=== PATIENT | male | born 1945 | race Two or more races ===

== ENCOUNTER 2024-06-28 01:04 | Inpatient (IN) | payer OTHER ==
[~2024-06-28] VITALS: Ht 170.2 cm; Wt 60.0 kg
[2024-06-28 02:00] LABS: Urine Bacteria None Seen /hpf (None Seen)
--- NOTE | 2024-06-28 02:00 | ED.PDOC ---
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 Allergies: NKDA HPI: Poor Historian. 79-year-old male presents to emergency department for unable to urinate since yesterday. Patient has the urge to go by his unable to void urine. The patient is currently on antibiotics for recurrent UTI. He completed Cipro and is currently on Augmentin all last week. He has one more day of his course of antibiotics. REVIEW OF SYSTEMS: CONSTITUTIONAL: Denies acute: fever, diaphoresis, chills, generalized weakness. HEAD: Denies acute: headache, photophobia Eyes: Denies acute: Double vision, vision loss, eye pain, eye discharge. EARS: Denies acute: tinnitus, hearing loss, ear discharge, ear pain, THROAT: Denies acute: sore throat, swelling, difficulty swallowing , pain with swa llowing, change in voice. NECK: Denies acute: neck pain, neck swelling, stiff neck. HEART: Denies acute : chest pain, palpitations, LUNGS: Denies acute: SOB, wheezing, cough, hemoptysis ABDOMEN: Denies acute: abdominal pain, Nausea, Vomiting, diarrhea, melena , hematemesis, hematochezia SKIN: Denies acute: rash, redness, lesions, itchiness. EXTREMITIES: Denies acute: calf pain, numbness, tingling, weakness, denies pain in extremity. Denies acute: Low back pain. Neuro: Denies acute: focal neurological deficit, motor or sensory focal neurological deficit, tremors, seizure like activity, confusion, dizziness, change in mental status, loss of bowel or bladder function, cauda equina like symptoms. : Denies acute: dysuria, hematuria, flank pain, increase in urinary frequency. PSYCH: Denies acute: hallucination, suicidal ideation, homicidal ideation. PHYSICAL EXAM: General: Mild to moderate acute distress, awake and alert. Head: normocephalic, atraumatic. Neck: supple, trachea is midline, no swelling. Throat: Normal phonation. Eyes:, no erythema, no purulent discharge, no proptosis, no icterus. Heart: regular rate, regular rhythm, no significant murmur appreciated. Lungs: no apparent respiratory distress, Able to speak in full sentences. No wheezing, no rhonchi, no crackles. No stridors Clear to auscultation bilaterally. Abdomen: Suprapubic tender to palpation, non distended, soft, no guarding, no rebound, + bowel sounds. Patel catheter was placed successfully in a proximally 1 L of normal color urine was obtained. Patient feels significantly better. Neuro: Awake, Alert, oriented to name, self, situation, follows commands GCS=15. Speech is normal. Skin: no petechia, no purpura, no cyanosis, slightly-pale, not jaundice. Lower extremities: --trace bilateral - Pitting edema no deformity, no focal swelling, no calf TTP. Makes eye contact. moves all four extremities. Face: no apparent facial droop. Chief Complaint: Urinary Time Seen by MD: 01:30 Reviewed notes: Nurses Notes, Allergies Allergies: Coded Allergies: NO KNOWN ALLERGIES (Unverified , 06/28/24) Information Source: Patient, Relative Mode of Arrival: Wheelchair Was a procedure done? Was a procedure done?: No Differential Diagnosis Kidney stone (Female): N/A Urinary Problem (Male): Bladder Outlet, Bladder Obstruction, Epididymitis, Prostatitis, Plelonephritis, Post op Complications, Renal Failure, Urethritis, Urinary Retention, Urolithiasis, UTI X-Ray, Labs, Meds, VS Vital Signs Date Time Temp Pulse Resp B/P (MAP) Pulse Ox O2 Delivery O2 Flow Rate FiO2 06/28/24 03:10 98.6 97 16 121/60 (80) 97 98.6 06/28/24 01:17 98.8 85 19 28/62 (51) 98 Lab Test 06/28/24 02:36 06/28/24 01:36 06/28/24 01:21 Range/Units Troponin I High Sensitivity 7 7 </=54 ng/L White Blood Count 7.5 4.4-10.8 10^3/uL Red Blood Count 3.11 L 4.5-5.90 10^6/uL Hemoglobin 9.1 L 13.5-17.5 g/dL Hematocrit 26.8 L 41.0-53.0 % Mean Corpuscular Volume 86.1 80.0-100.0 fL Mean Corpuscular Hemoglobin 29.2 28.0-32.0 pg Mean Corpuscular Hemoglobin Concent 33.9 32.0-36.0 g/dL Red Cell Distribution Width 17.0 H 11.8-14.3 % Platelet Count 213 140-450 10^3/uL Mean Platelet Volume 8.5 6.9-10.8 fL Neutrophils (%) (Auto) 65.4 37.0-80.0 % Lymphocytes (%) (Auto) 26.0 10.0-50.0 % Monocytes (%) (Auto) 6.8 0.0-12.0 % Eosinophils (%) (Auto) 1.0 0.0-7.0 % Basophils (%) (Auto) 0.8 0.0-2.0 % Neutrophils # (Auto) 4.9 1.6-8.6 10 ^3/uL Lymphocytes # (Auto) 1.9 0.4-5.4 10 ^3/uL Monocytes # (Auto) 0.5 0-1.3 10 ^3/uL Eosinophils # (Auto) 0.1 0-0.8 10 ^3/uL Basophils # (Auto) 0.1 0-0.2 10 ^3/uL Nucleated Red Blood Cells 0.0 % Platelet Estimate Adequate Anisocytosis (manual) Slight Schistocytes Few Sodium Level 135 L 136-145 mmol/L Potassium Level 3.8 3.5-5.1 mmol/L Chloride Level 97 L 98-107 mmol/L Carbon Dioxide Level 31 20-31 mmol/L Anion Gap 7 5-15 Blood Urea Nitrogen 20 9-23 mg/dL Creatinine 2.57 H 0.700-1.30 mg/dL Glomerular Filtration Rate Calc 25 >90 mL/min BUN/Creatinine Ratio 7.8 L 10.0-20.0 Serum Glucose 220 H 74-106 mg/dL Lactic Acid Level 1.2 0.4-2.0 mmol/L Calcium Level 9.7 8.7-10.4 mg/dL Total Bilirubin 0.2 0.2-1.0 mg/dL Aspartate Amino Transferase (AST) 20 13-40 U/L Alanine Aminotransferase (ALT) 12 7-40 U/L Alkaline Phosphatase 152 H 46-116 U/L Total Protein 6.9 5.7-8.2 g/dL Albumin 3.8 3.2-4.8 g/dL Urine Color Colorless Yellow Urine Clarity Turbid H Clear Urine pH 8.5 5.0-9.0 Urine Specific [place] 1.012 1.001-1.035 Urine Protein 3+ H Negative Urine Ketones Negative Negative Urine Blood 1+ H Negative /uL Urine Nitrite Negative Negative Urine Bilirubin Negative Negative Urine Urobilinogen Normal Negative mg/dL Urine Leukocyte Esterase 3+ Negative /uL Urine RBC 57 0 - 3 /hpf Urine Microscopic WBC 926 H 0-3 /HPF Urine Squamous Epithelial Cells None seen <5 /hpf Urine Bacteria None seen None Seen /hpf Urine Glucose 3+ H Normal mg/dL Current Medications Medications (Trade) Dose Ordered Sig/Mallorie Route Start Time Stop Time Status Last Admin Ceftriaxone Sodium 50 ml @ 100 mls/hr ONCE ONCE IV 06/28/24 02:45 06/28/24 03:14 DC 06/28/24 02:45 Time of 1ST Reevaluation: 01:30 Reevaluation 1ST: Unchanged Patient Education/Counseling: Diagnosis, Treatment Family Education/Counseling: No Family Present Assigned to Dr. Dr. Aguilar I anticipate the patient will be discharged however CT scan still pending. Dr. Aguilar will follow up on CT scan reports and reassessed the patient and disposition the patient appropriately. Comments Patient presented with the above HPI. Acute urinary retention workup was initiated. patient was found with the above mentioned diagnosis. the following medications were ordered: n/a the following tests were ordered: CMP, CBC, UA, EKG, lactic acid, CT abdomen/pelvis w/o contrast Patient ED course and VS have been stabilized. Patient has been reassessed in the ED and remained in a stable condition. Pertinent incidental findings were discussed with the patient and/or family. Patient/family voices understanding and is agreeable with plan. Patient has been observed in the ED adequate length of time to insure improvement/stability. Escalation of care considered: Consideration of escalation to observation or admission Patel catheter was placed successfully and patient's symptoms resolved. At least 1 L of normal color urine came out. Patient is already on antibiotics for UTI. He was given Rocephin here as well. Patient was instructed to follow up with Urology. Patient was DISCHARGED home in a stable condition. All the reports of any imaging studies that were ordered by myself were reviewed by myself. CT scan of the abdomen and pelvis is still pending. The care of this patient was signed out to my colleague Dr. Aguilar to follow up on CT scan finding and reassessed the patient and disposition the patient appropriately. Departure 1 Departure Time of Disposition: 02:34 Impression: Primary Impression: Acute urinary retention Additional Impressions: UTI (urinary tract infection) Qualified Codes: N30.00 - Acute cystitis without hematuria Indwelling Patel catheter calcification Qualified Codes: T83.89XA - Other specified complication of genitourinary prosthetic devices, implants and grafts, initial encounter Disposition: 30 STILL A PATIENT Condition: Stable Additional Instructions: Additional discharge instructions: You MUST follow-up with your primary care/family doctor in 1 to 2 days. If you are unable to see your primary care/family doctor, please return to our emergency room for re-assessment and re-evaluation in 1 to 2 days. Return to the emergency room here in our facility or to the nearest ER [facility] if your symptoms change or worsen. CONSULTATIONS: you MUST Follow-up for consultation as soon as possible with: -urology in 1-2 days. Please call for appointment. You MUST call the consultants office yourself to make an appointment. You may need to arrange that through your insurance and/or your primary/family doctor. If you are unable to see the clinical sales consultant in 1 to 2 days, you must return to our emergency room (or any other ER of your choice) for re-assessment and re- evaluation. Adequate fluid hydration. Below is a copy of your radiological report for follow up: Discharged With: Self, Relative Critical Care Note Critical Care Time?: No I personally scribed for LIGIA LOPEZ DO ([email or web address]) on 06/28/24 at 02:00. Electronically submitted by Wong Paz ([email or web address]). LIGIA LOPEZ DO Jun 28, 2024 02:00
[2024-06-28 02:19] LABS: Urine Blood 1+ /uL (Negative); Urine Clarity Turbid (Clear); Urine Color Colorless (Yellow); Urine Protein, UAD 3+ (Negative); Urine Specific Gravity 1.012 (1.001-1.035); Urine Squamous Epithelial Cell None Seen /hpf (<5); Urine Urobilinogen Normal (Negative); Urine WBC 926 /HPF (0-3); Urine pH 8.5 (5.0-9.0)
[2024-06-28 02:26] LABS: Basophils # (auto) 0.1 10 ^3/uL (0-0.2); Basophils % (auto) 0.8 % (0.0-2.0); Eosinophils # (auto) 0.1 10 ^3/uL (0-0.8); Hematocrit 26.8 % (41.0-53.0); Hemoglobin 9.1 g/dL (13.5-17.5); Lymphocytes # (auto) 1.9 10 ^3/uL (0.4-5.4); Mean Corpuscular Hemoglobin 29.2 pg (28.0-32.0); Mean Corpuscular Hgb Conc. 33.9 g/dL (32.0-36.0); Mean Corpuscular Volume 86.1 fL (80.0-100.0); Monocytes # (auto) 0.5 10 ^3/uL (0-1.3); Monocytes % (auto) 6.8 % (0.0-12.0); Neutrophils # (auto) 4.9 10 ^3/uL (1.6-8.6); Neutrophils % (auto) 65.4 % (37.0-80.0); Platelet Count (auto) 213 10^3/uL (140-450); Red Blood Cells 3.11 10^6/uL (4.5-5.90); White Blood Cell 7.5 10^3/uL (4.4-10.8)
[2024-06-28 02:32] LABS: Alanine Aminotransferase 12 U/L (7-40); Albumin 3.8 g/dL (3.2-4.8); Anion Gap 7 (5-15); Aspartate Aminotransferase 20 U/L (13-40); BUN/Creatinine Ratio 7.8 (10.0-20.0); Blood Urea Nitrogen 20 mg/dL (9-23); Calcium 9.7 mg/dL (8.7-10.4); Potassium 3.8 mmol/L (3.5-5.1)
[2024-06-28 02:33] LABS: Alkaline Phosphatase 152 U/L (46-116); Bilirubin, Total 0.2 mg/dL (0.2-1.0); Carbon Dioxide 31 mmol/L (20-31); Chloride 97 mmol/L (98-107); Glucose 220 mg/dL (74-106); Sodium 135 mmol/L (136-145); Total Protein 6.9 g/dL (5.7-8.2)
[2024-06-28] MEDS: cefTRIAXone 1GM/50ML D5W 50 ML IV ONE ×2 (02:45→07:37)
[2024-06-28 02:56] LABS: Anisocytosis Slight; Platelet Estimate Adequate
--- NOTE | 2024-06-28 04:37 | DVH ---
Examination: ABPL CLINICAL INDICATION: urinary retention . COMPARISON: None. CONTRAST USED: None. TECHNIQUE: A plain CT study of the abdomen and pelvis is performed. The examination was performed w ith [address] scan is done according to ALARA (As Low as Reasonably Achievable). Multipl daniel reconstructions were obtained. FINDINGS: The lack of intravenous contrast limits evaluation of solid organ and other structures, differentiati on/separation and intraluminal evaluation of vessels and ureter from surrounding structures, and eval uation of organ or abnormal enhancement. Limited evaluation due to streak artifacts from the left hip joint replacement prosthesis in place gi ving intense adjacent streak artifacts in pelvis. CT ABDOMEN: Visualized lower thorax: The evaluation of lung bases demonstrates no focal infiltrates or pleural e ffusion. Subpleural subsegmental atelectatic areas and/or scarring in visualized left lower pulmonary lobe pos teriorly. Atelectatic band and/or scarring in visualized left lower pulmonary lobe posteriorly. Unenhanced liver: The liver is normal in size. There is no intrahepatic biliary radicle dilatation. Gallbladder: The gallbladder is normal and reveals no intrinsic abnormality. The common bile duct i s not dilated. Unenhanced pancreas: The pancreas is normal in size and shape. No focal lesion is seen within. The peripancreatic fat planes are normal. Unenhanced spleen: The spleen is normal in size and does not show any focal abnormality. Retroperitoneum: Both adrenal glands are normal in size and morphology in this unenhanced CT scan. There is no significant retroperitoneal lymphadenopathy. The kidneys are normal in size with no hydronephrosis. Rzyv-wa-bjjmnexy lesion of approximate size 21 mm at the upper pole of left kidney posteriorly. Advi sed further evaluation with CT abdomen and pelvis with contrast. Non-obstructing calculus of approximate size 2 mm at the mid pole of right kidney. Vessels: Calcific atherosclerotic aorto-iliac plaques noted. Otherwise, the aorta, IVC and the mese nteric vessels cannot be commented in this unenhanced CT scan. Stomach and bowel: The bowel loops are unremarkable. There is no ascites. 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 P lease correlate with operative history. Mild degenerative changes in the visualized thoracolumbar vertebrae and the rest of the pelvic bones. CT PELVIS: Appendix: The appendix is not distinctly visualized. Colon: Fecal matter noted in the colon and rectum, suggestive of constipation in the appropriate cli nical setting. Advised clinical correlation. Hyperdense intraluminal material noted in the distal colon and rectum, likely retained contrast from prior ingestion of oral contrast media. Urinary bladder: The urinary bladder is empty with urinary drainage catheter within. Pelvic organs: The prostate gland cannot be commented upon due to intense streak artifacts from the left hip joint replacement prosthesis in place. No significant pelvic lymphadenopathy is identified. No abnormal fluid collection is seen. IMPRESSION: 1. Limited evaluation due to streak artifacts from the left hip joint replacement prosthesis in plac e giving intense adjacent streak artifacts in pelvis. 2. Vyau-io-rmelngtp lesion of approximate size 21 mm at the upper pole of left kidney posteriorly. Advised further evaluation with CT abdomen and pelvis with contrast. 3. Non-obstructing calculus of approximate size 2 mm at the mid pole of right kidney. 4. No abdominal adenopathy. 5. No ascites. 6. No free air or inflammatory changes. 7. Chronic and/or ancillary findings as described above. Electronically Signed 06/28/2024 04:35 Sydnee Prado
--- NOTE | 2024-06-28 05:19 | ED.PDOC ---
Departure 1 Departure Time of Disposition: 05:17 (Patient has failed multiple outpatient antibiotics for urinary tract infection. Patient also with a lesion on his kidney. We will admit patient for further workup) Impression: Primary Impression: Acute urinary retention Additional Impressions: Indwelling Patel catheter calcification Qualified Codes: T83.89XA - Other specified complication of genitourinary prosthetic devices, implants and grafts, initial encounter UTI (urinary tract infection) Qualified Codes: N30.00 - Acute cystitis without hematuria Disposition: ADMITTED INPATIENT Admit to: Med Surg Condition: Serious Additional Instructions: Additional discharge instructions: You MUST follow-up with your primary care/family doctor in 1 to 2 days. If you are unable to see your primary care/family doctor, please return to our emergency room for re-assessment and re-evaluation in 1 to 2 days. Return to the emergency room here in our facility or to the nearest ER [facility] if your symptoms change or worsen. CONSULTATIONS: you MUST Follow-up for consultation as soon as possible with: -urology in 1-2 days. Please call for appointment. You MUST call the consultants office yourself to make an appointment. You may need to arrange that through your insurance and/or your primary/family doctor. If you are unable to see the internet consultant in 1 to 2 days, you must return to our emergency room (or any other ER of your choice) for re-assessment and re- evaluation. Adequate fluid hydration. Below is a copy of your radiological report for follow up: Discharged With: Self, Relative CATHLEEN KING MD Jun 28, 2024 05:19
[2024-06-28] MEDS ORDERED: DEXTROSE (50%) 50ML SYRG IV PRN (07:00)
[2024-06-28] MEDS ORDERED: HYDROcodone-ACET 5/325MG TAB PO PRN (07:00)
[2024-06-28] MEDS ORDERED: ONDANSETRON HCL 4 MG/2 ML VIAL IV PRN (07:00)
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
[2024-06-28] MEDS: ACCU-CHEK COMFORT CURVE STRIP VI SCH (07:37)
[2024-06-28] MEDS: InsuLIN REG 1unit/0.01ml Soln (100units/ml) SC SCH (07:48)
[2024-06-28] MEDS ORDERED: cefTRIAXone 1GM/50ML D5W 50 ML IV SCH (09:00)
[2024-06-28] MEDS ORDERED: CARV25TA55 PO (11:35)
[2024-06-28] MEDS ORDERED: ROSU20TA56 PO (11:35)
[2024-06-28] MEDS ORDERED: QUET50TA27 PO (11:35)
[2024-06-28] MEDS ORDERED: INSU1INJ19 SC (11:35)
--- NOTE | 2024-06-28 13:52 | DVHINCON2 ---
Date of service: Jun 28, 2024 Referring Physician Cami Olmstead, nurse practitioner Reason for Consultation End-stage renal disease to manage hemodialysis History of Present Illness Patient is a 79-year-old male with past medical history significant for hypertension, diabetes, CVA with no deficits, right ankle surgery, right hip surgery, and ESRD on HD () who presents to the ED for unable to urinate and dysuria for one day, history of ESBL urinary tract infection. On admission Nephrology is consulted to manage his hemodialysis Past Medical History hypertension, diabetes, CVA, right ankle surgery, right hip surgery, and ESRD on HD (/) Past Surgical History Hemodialysis catheter Allergies: Coded Allergies: NO KNOWN ALLERGIES (Unverified , 06/28/24) Home Meds Reported Medications Carvedilol (Carvedilol) 25 Mg Tab, 1 TAB PO BID 06/28/24 Insulin Glargine (Basaglar Kwikpen) 100 Unit/Ml Inj, 12 UNIT SC 06/28/24 Rosuvastatin Calcium (Rosuvastatin Calcium) 20 Mg Tab, 1 TAB PO DAILY 06/28/24 Quetiapine Fumerate (QUETIAPINE FUMARATE) 50 Mg Tab, 1 TAB PO BIDPRN PRN 06/28/24 Current Medications Current Medications Medications (Trade) Dose Ordered Sig/Mallorie Route PRN Reason Start Time Stop Time Status Last Admin Ceftriaxone Sodium 50 ml @ 100 mls/hr DAILY@09 IV 06/29/24 09:00 06/28/24 15:13 DC Patient Own Medication 1 tab DAILY PO 06/29/24 10:00 UNV Carvedilol (Coreg Tablet) 3.125 mg Q12HR PO 06/28/24 22:00 06/29/24 10:32 Atorvastatin Calcium (Lipitor) 80 mg HS PO 06/28/24 22:00 06/28/24 22:29 Ertapenem 0.5 gm/ Sodium Chloride 50 ml @ 100 mls/hr DAILY IV 06/29/24 10:00 06/29/24 10:00 Review of Systems All 12 item review of systems reviewed with the patient nonsignificant except what is mentioned in the history of present illness H&P Exam Vital Signs/I&O Vital Sign Date Time Temp Pulse Resp B/P (MAP) Pulse Ox O2 Delivery O2 Flow Rate FiO2 06/29/24 10:32 79 152/67 06/29/24 08:40 98.9 19 97 98.9 06/29/24 00:53 Room Air* 0 21 Intake and Output 06/28/24 06/29/24 19:00 07:00 Intake Total 50 ml 240 ml Balance 50 ml 240 ml Intake Oral 240 ml IV Total 50 ml Physical Exam Patient appeared cachectic in no acute distress Right tunneled IJ hemodialysis catheter Lungs clear to auscultation bilaterally Cardiac exam regular rate and rhythm GI soft nontender was normal Extremities no clubbing cyanosis or edema Neuro patient is awake and alert Labs/Diagnostic Data Labs/Diagnostic Data Laboratory Tests Test 06/29/24 11:10 06/29/24 06:33 06/29/24 05:44 06/28/24 17:02 Range/Units POC Glucose 267 H 143 H 70-106 mg/dl White Blood Count 6.5 4.4-10.8 10^3/uL Red Blood Count 2.88 L 4.5-5.90 10^6/uL Hemoglobin 8.8 L 13.5-17.5 g/dL Hematocrit 25.0 L 41.0-53.0 % Mean Corpuscular Volume 86.6 80.0-100.0 fL Mean Corpuscular Hemoglobin 30.5 28.0-32.0 pg Mean Corpuscular Hemoglobin Concent 35.3 32.0-36.0 g/dL Red Cell Distribution Width 18.5 H 11.8-14.3 % Platelet Count 181 140-450 10^3/uL Mean Platelet Volume 8.4 6.9-10.8 fL Neutrophils (%) (Auto) 56.6 37.0-80.0 % Lymphocytes (%) (Auto) 30.8 10.0-50.0 % Monocytes (%) (Auto) 8.8 0.0-12.0 % Eosinophils (%) (Auto) 3.1 0.0-7.0 % Basophils (%) (Auto) 0.7 0.0-2.0 % Neutrophils # (Auto) 3.7 1.6-8.6 10 ^3/uL Lymphocytes # (Auto) 2.0 0.4-5.4 10 ^3/uL Monocytes # (Auto) 0.6 0-1.3 10 ^3/uL Eosinophils # (Auto) 0.2 0-0.8 10 ^3/uL Basophils # (Auto) 0 0-0.2 10 ^3/uL Nucleated Red Blood Cells 0.0 % Sodium Level 138 136-145 mmol/L Potassium Level 3.6 3.5-5.1 mmol/L Chloride Level 101 98-107 mmol/L Carbon Dioxide Level 30 20-31 mmol/L Anion Gap 7 5-15 Blood Urea Nitrogen 27 H 9-23 mg/dL Creatinine 3.49 H 0.700-1.30 mg/dL Glomerular Filtration Rate Calc 17 >90 mL/min BUN/Creatinine Ratio 7.7 L 10.0-20.0 Serum Glucose 153 H 74-106 mg/dL Calcium Level 9.2 8.7-10.4 mg/dL Total Bilirubin 0.2 0.2-1.0 mg/dL Aspartate Amino Transferase (AST) 16 13-40 U/L Alanine Aminotransferase (ALT) 11 7-40 U/L Alkaline Phosphatase 126 H 46-116 U/L Total Protein 6.8 5.7-8.2 g/dL Albumin 3.8 3.2-4.8 g/dL Phosphorus Level 3.5 2.4-5.1 mg/dL Magnesium Level 2.0 1.6-2.6 mg/dL Vitamin D 25-Hydroxy 52.6 30.0-100 ng/mL Hepatitis B Surface Antigen Negative Negative Test 06/28/24 12:05 06/28/24 07:43 06/28/24 02:36 06/28/24 01:36 Range/Units POC Glucose 122 H 157 H 70-106 mg/dl Troponin I High Sensitivity 7 7 </=54 ng/L White Blood Count 7.5 4.4-10.8 10^3/uL Red Blood Count 3.11 L 4.5-5.90 10^6/uL Hemoglobin 9.1 L 13.5-17.5 g/dL Hematocrit 26.8 L 41.0-53.0 % Mean Corpuscular Volume 86.1 80.0-100.0 fL Mean Corpuscular Hemoglobin 29.2 28.0-32.0 pg Mean Corpuscular Hemoglobin Concent 33.9 32.0-36.0 g/dL Red Cell Distribution Width 17.0 H 11.8-14.3 % Platelet Count 213 140-450 10^3/uL Mean Platelet Volume 8.5 6.9-10.8 fL Neutrophils (%) (Auto) 65.4 37.0-80.0 % Lymphocytes (%) (Auto) 26.0 10.0-50.0 % Monocytes (%) (Auto) 6.8 0.0-12.0 % Eosinophils (%) (Auto) 1.0 0.0-7.0 % Basophils (%) (Auto) 0.8 0.0-2.0 % Neutrophils # (Auto) 4.9 1.6-8.6 10 ^3/uL Lymphocytes # (Auto) 1.9 0.4-5.4 10 ^3/uL Monocytes # (Auto) 0.5 0-1.3 10 ^3/uL Eosinophils # (Auto) 0.1 0-0.8 10 ^3/uL Basophils # (Auto) 0.1 0-0.2 10 ^3/uL Nucleated Red Blood Cells 0.0 % Platelet Estimate Adequate Anisocytosis (manual) Slight Schistocytes Few Sodium Level 135 L 136-145 mmol/L Potassium Level 3.8 3.5-5.1 mmol/L Chloride Level 97 L 98-107 mmol/L Carbon Dioxide Level 31 20-31 mmol/L Anion Gap 7 5-15 Blood Urea Nitrogen 20 9-23 mg/dL Creatinine 2.57 H 0.700-1.30 mg/dL Glomerular Filtration Rate Calc 25 >90 mL/min BUN/Creatinine Ratio 7.8 L 10.0-20.0 Serum Glucose 220 H 74-106 mg/dL Hemoglobin A1c 6.9 H <5.7 % A1C Lactic Acid Level 1.2 0.4-2.0 mmol/L Calcium Level 9.7 8.7-10.4 mg/dL Total Bilirubin 0.2 0.2-1.0 mg/dL Aspartate Amino Transferase (AST) 20 13-40 U/L Alanine Aminotransferase (ALT) 12 7-40 U/L Alkaline Phosphatase 152 H 46-116 U/L B-Type Natriuretic Peptide 76.05 0-100 pg/mL Total Protein 6.9 5.7-8.2 g/dL Albumin 3.8 3.2-4.8 g/dL Free Prostate Specific Antigen 0.07 N/A ng/mL Percent Free Prostate Specific Ag 17.5 . % Prostate Specific Antigen Total 0.4 0.0-4.0 ng/mL Parathyroid Hormone (Intact) 67.9 18.4-80.1 pg/mL Test 06/28/24 01:21 Range/Units Urine Color Colorless Yellow Urine Clarity Turbid H Clear Urine pH 8.5 5.0-9.0 Urine Specific [place] 1.012 1.001-1.035 Urine Protein 3+ H Negative Urine Ketones Negative Negative Urine Blood 1+ H Negative /uL Urine Nitrite Negative Negative Urine Bilirubin Negative Negative Urine Urobilinogen Normal Negative mg/dL Urine Leukocyte Esterase 3+ Negative /uL Urine RBC 57 0 - 3 /hpf Urine Microscopic WBC 926 H 0-3 /HPF Urine Squamous Epithelial Cells None seen <5 /hpf Urine Bacteria None seen None Seen /hpf Urine Glucose 3+ H Normal mg/dL Assessment End-stage renal disease on hemodialysis Urinary tract infection History of ESBL UTI Nephrolithiasis Diabetes mellitus type 2 Anemia of chronic kidney disease Recommendations Hemodialysis tomorrow Epogen 43707 IV post hemodialysis Resume home medications Renal diet IV antibiotics Insulin sliding scale Urology consult We will continue to follow Patient seen and examined by myself in the ER. I discussed my plan of care with the patient and primary nurse at the bedsideK I would like to Than micheal Olmstead for the consult, will follow Plan discussed with: Patient AUTUMN LOCKHART MD Jun 28, 2024 13:51
--- NOTE | 2024-06-28 15:16 | DVHPN2 ---
Subjective Patient continues to report having suprapubic pain. Reviewed: Care Plan, H&P, Labs, Medications, Previous Orders Changes from previous H/P or p: No Changes General: Per HPI Eyes: No Pain, No Vision change, No Conjunctivae inflammation, No Eyelid inflammation, No Other, No Redness ENT: No Ear pain, No Ear discharge, No Nose pain, No Nose discharge, No Nose congestion, No Mouth pain, No Mouth swelling, No Throat pain, No Throat swelling, No Other 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: No Chest Pain, No Palpitations, No Orthopnea, No Paroxysmal Noc. Dyspnea, No Edema, No Lt Headedness, No Other Respiratory: No Cough, No Dry, No Shortness of breath, No SOB with excertion, No Wheezing, No Hemoptysis, No Pleuritic Pain, No Sputum, No Other Gastrointestinal: No Nausea, No Vomiting; Abdominal Pain; No Diarrhea, No Constipation, No Melena, No Hematochezia, No Other Genitourinary: Dysuria; No Frequency, No Incontinence, No Hematuria, No Retention, No Other Musculoskeletal: other (Hip pain); No neck pain, No shoulder pain, No arm pain, No back pain, No hand pain, No leg pain, No foot pain Skin: No Rash, No Lesions, No Jaundice, No Bruising, No Other Objective Vitals Vital Signs Date Time Temp Pulse Resp B/P (MAP) Pulse Ox O2 Delivery O2 Flow Rate FiO2 06/28/24 09:04 98.2 78 16 122/61 (81) 99 98.2 06/28/24 07:31 Room Air Intake/Output Intake and Output 06/28/24 07:00 Intake Total 50 ml Output Total 1000 ml Balance -950 ml Intake IV Total 50 ml Output Urine Total 1000 ml General Appearance: Alert, Oriented X3, Cooperative, mild distress HEENT: Atraumatic, PERRLA Lungs: Clear to auscultation, Normal air movement 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: Normal S1, Normal S2 Abdomen: Normal bowel sounds Musculoskeletal: Normal sensory function, Normal motor function Extremities: No cyanosis Neuro: Normal gait, Normal speech Psych/Mental Status: Mental status NL, Mood NL Medications Current Medications Medications Dose Ordered Sig/Mallorie Route Start Time Stop Time Status Last Admin Dose Admin Acetaminophen/ Hydrocodone Bitart 1 tab Q4HP PRN PO 06/28/24 07:00 Ondansetron HCl 4 mg Q4HP PRN IV 06/28/24 07:00 Acetaminophen 650 mg Q6HP PRN PO 06/28/24 07:00 Diagnostic Test (Pha) 1 strip ACHS 06/28/24 07:00 06/28/24 12:01 1 STRIP Insulin Human Regular ACHS SC 06/28/24 07:00 06/28/24 07:48 2 UNITS Dextrose 50 ml UD PRN IV 06/28/24 07:00 Ceftriaxone Sodium 50 ml @ 100 mls/hr DAILY@09 IV 06/29/24 09:00 Patient Own Medication 1 tab DAILY PO 06/29/24 10:00 UNV Carvedilol 3.125 mg Q12HR PO 06/28/24 22:00 Atorvastatin Calcium 80 mg HS PO 06/28/24 22:00 Laboratory Results Laboratory Tests 06/28/24 01:36 Chemistry Test 06/28/24 01:36 Albumin 3.8 g/dL (3.2-4.8) Calcium Level 9.7 mg/dL (8.7-10.4) Magnesium Level Pending Phosphorus Level Pending Total Protein 6.9 g/dL (5.7-8.2) Cardiac Markers Test 06/28/24 01:36 B-Type Natriuretic Peptide Pending LFT Test 06/28/24 01:36 Alanine Aminotransferase (ALT) 12 U/L (7-40) Alkaline Phosphatase 152 U/L (46-116) H Aspartate Amino Transferase (AST) 20 U/L (13-40) Total Bilirubin 0.2 mg/dL (0.2-1.0) HgA1c, TSH Test 06/28/24 01:36 Hemoglobin A1c 6.9 % A1C (<5.7) H Urinalysis Test 06/28/24 01:21 Urine Color Colorless (Yellow) Urine Clarity Turbid (Clear) H Urine pH 8.5 (5.0-9.0) Urine Specific [place] 1.012 (1.001-1.035) Urine Protein 3+ (Negative) H Urine Ketones Negative (Negative) Urine Blood 1+ /uL (Negative) H Urine Nitrite Negative (Negative) Urine Bilirubin Negative (Negative) Urine Urobilinogen Normal mg/dL (Negative) Urine Leukocyte Esterase 3+ /uL (Negative) Urine RBC 57 /hpf (0 - 3) Urine Microscopic WBC 926 /HPF (0-3) H Urine Squamous Epithelial Cells None seen /hpf (<5) Urine Bacteria None seen /hpf (None Seen) Urine Glucose 3+ mg/dL (Normal) H Labs and/or images reviewed: Labs reviewed by me, Image(s) reviewed by me Assessment/Plan Assessment/Plan Impression: -complicated cystitis with failure of oral antibiotic therapy -end-stage renal disease with hemodialysis -deconditioning with recent hip ORIF -anemia of chronic disease -diabetes mellitus Plan: -nephrology consultation -urine culture -check PSA -change Patel catheter -broaden coverage with [place] panel -regular insulin sliding scale -long discussion made with the patient and caregiver who was bedside. Total time spent with patient and family regarding advance care plannin minutes. Total time spent with patient discussing and formulating plan of care: 35 minutes. This medical document was created using an electronic medical record system with [employer] dictation system. Although this document has been carefully reviewed, there may still be some phonetic and typographical errors. These areas are purely typographical due to imperfections of the software programs, and do not reflect any compromise in the patient's medical care. Plan discussed with: Patient, Other (RN) My Orders Orders - CHRISTIE العلي NP Procedure Category Date Status Time Carvedilol Tablet PHA 06/28/24 In Process (Coreg Tablet) 22:00 Psa Total+% Free LAB 06/28/24 In Process 11:35 Date of Service: Jun 28, 2024 Billing Provider: CHRISTIE العلي NP Common Visit Codes: [id number] INP/OBS CARE(HIGH) Secondary Visit Codes: [id number] CARE PLAN 30 MINUTES CHRISTIE العلي NP Jun 28, 2024 15:16
[2024-06-28 17:35] LABS: Phosphorus 3.5 mg/dL (2.4-5.1)
[2024-06-28 20:46] VITALS: PULSE 86; RESP 18; O2SAT 97
[2024-06-28] MEDS: CARVEDILOL 3.125 MG TAB PO SCH (22:25)
[2024-06-28] MEDS: ATORVASTATIN 20 MG TAB PO SCH (22:29)
[2024-06-29] VITALS (7 sets, daily range): BP systolic 122–153; BP diastolic 60–67; PULSE 79–82; RESP 17–19; TEMP 97.5–98.9; O2SAT 97–100
[2024-06-29 06:24] LABS: Basophils # (auto) 0 10 ^3/uL (0-0.2); Basophils % (auto) 0.7 % (0.0-2.0); Eosinophils # (auto) 0.2 10 ^3/uL (0-0.8); Eosinophils % (auto) 3.1 % (0.0-7.0); Hemoglobin 8.8 g/dL (13.5-17.5); Lymphocytes % (auto) 30.8 % (10.0-50.0); Mean Corpuscular Hemoglobin 30.5 pg (28.0-32.0); Mean Corpuscular Hgb Conc. 35.3 g/dL (32.0-36.0); Mean Corpuscular Volume 86.6 fL (80.0-100.0); Monocytes # (auto) 0.6 10 ^3/uL (0-1.3); Monocytes % (auto) 8.8 % (0.0-12.0); Neutrophils # (auto) 3.7 10 ^3/uL (1.6-8.6); Neutrophils % (auto) 56.6 % (37.0-80.0); Platelet Count (auto) 181 10^3/uL (140-450); Red Blood Cells 2.88 10^6/uL (4.5-5.90); Red Cell Distribution Width 18.5 % (11.8-14.3); White Blood Cell 6.5 10^3/uL (4.4-10.8)
[2024-06-29 06:35] LABS: Alanine Aminotransferase 11 U/L (7-40); Albumin 3.8 g/dL (3.2-4.8); Anion Gap 7 (5-15); Aspartate Aminotransferase 16 U/L (13-40); BUN/Creatinine Ratio 7.7 (10.0-20.0); Calcium 9.2 mg/dL (8.7-10.4); Carbon Dioxide 30 mmol/L (20-31); Chloride 101 mmol/L (98-107); Potassium 3.6 mmol/L (3.5-5.1); Sodium 138 mmol/L (136-145)
[2024-06-29 06:36] LABS: Alkaline Phosphatase 126 U/L (46-116); Blood Urea Nitrogen 27 mg/dL (9-23); Glucose 153 mg/dL (74-106)
[2024-06-29 06:37] LABS: Total Protein 6.8 g/dL (5.7-8.2)
[2024-06-29 06:38] LABS: Bilirubin, Total 0.2 mg/dL (0.2-1.0)
[2024-06-29 08:06] LABS: PSA Free 0.07 ng/mL; Prostate Specific Antigen 0.4 ng/mL (0.0-4.0)
[2024-06-29] MEDS ORDERED: cefTRIAXone 1GM/50ML D5W 50 ML IV SCH (09:00)
[2024-06-29] MEDS ORDERED: PATIENTS OWN MEDICATION (Rosuvastatin Calcium 1 TAB) PO SCH (10:00)
[2024-06-29] MEDS: ERTAPENEM SOD INJ 0.5 GM in SODIUM CHL 0.9% 50 ML IV SCH (10:00)
--- NOTE | 2024-06-29 12:55 | DVHPN2 ---
Subjective Patient continues to report having suprapubic pain. Reviewed: Care Plan, H&P, Labs, Medications, Previous Orders Changes from previous H/P or p: No Changes General: Per HPI Eyes: No Pain, No Vision change, No Conjunctivae inflammation, No Eyelid inflammation, No Other, No Redness ENT: No Ear pain, No Ear discharge, No Nose pain, No Nose discharge, No Nose congestion, No Mouth pain, No Mouth swelling, No Throat pain, No Throat swelling, No Other 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: No Chest Pain, No Palpitations, No Orthopnea, No Paroxysmal Noc. Dyspnea, No Edema, No Lt Headedness, No Other Respiratory: No Cough, No Dry, No Shortness of breath, No SOB with excertion, No Wheezing, No Hemoptysis, No Pleuritic Pain, No Sputum, No Other Gastrointestinal: No Nausea, No Vomiting, No Abdominal Pain, No Diarrhea, No Constipation, No Melena, No Hematochezia, No Other Genitourinary: Dysuria; No Frequency, No Incontinence, No Hematuria, No Retention, No Other Musculoskeletal: other (Hip pain); No neck pain, No shoulder pain, No arm pain, No back pain, No hand pain, No leg pain, No foot pain Skin: No Rash, No Lesions, No Jaundice, No Bruising, No Other Objective Vitals Vital Signs Date Time Temp Pulse Resp B/P (MAP) Pulse Ox O2 Delivery O2 Flow Rate FiO2 06/29/24 10:32 79 152/67 06/29/24 08:40 98.9 19 97 98.9 06/29/24 00:53 Room Air* 0 21 Intake/Output Intake and Output 06/29/24 07:00 Intake Total 290 ml Balance 290 ml Intake Oral 240 ml IV Total 50 ml General Appearance: Alert, Oriented X3, Cooperative, mild distress HEENT: Atraumatic, PERRLA Lungs: Clear to auscultation, Normal air movement 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: Normal S1, Normal S2 Abdomen: Normal bowel sounds Musculoskeletal: Normal sensory function, Normal motor function Extremities: No cyanosis Neuro: Normal gait, Normal speech Psych/Mental Status: Mental status NL, Mood NL Medications Current Medications Medications Dose Ordered Sig/Mallorie Route Start Time Stop Time Status Last Admin Dose Admin Acetaminophen/ Hydrocodone Bitart 1 tab Q4HP PRN PO 06/28/24 07:00 Ondansetron HCl 4 mg Q4HP PRN IV 1/22/25 07:00 Acetaminophen 650 mg Q6HP PRN PO 06/28/24 07:00 Diagnostic Test (Pha) 1 strip ACHS 06/28/24 07:00 06/29/24 11:30 1 STRIP Insulin Human Regular ACHS SC 06/28/24 07:00 06/29/24 11:24 6 UNITS Dextrose 50 ml UD PRN IV 06/28/24 07:00 Patient Own Medication 1 tab DAILY PO 06/29/24 10:00 UNV Carvedilol 3.125 mg Q12HR PO 06/28/24 22:00 06/29/24 10:32 3.125 MG Atorvastatin Calcium 80 mg HS PO 06/28/24 22:00 06/28/24 22:29 80 MG Ertapenem 0.5 gm/ Sodium Chloride 50 ml @ 100 mls/hr DAILY IV 06/29/24 10:00 06/29/24 10:00 100 MLS/HR Laboratory Results Laboratory Tests 06/29/24 05:44 Chemistry Test 06/28/24 17:02 06/29/24 05:44 Magnesium Level 2.0 mg/dL (1.6-2.6) Phosphorus Level 3.5 mg/dL (2.4-5.1) Albumin 3.8 g/dL (3.2-4.8) Calcium Level 9.2 mg/dL (8.7-10.4) Total Protein 6.8 g/dL (5.7-8.2) LFT Test 06/29/24 05:44 Alanine Aminotransferase (ALT) 11 U/L (7-40) Alkaline Phosphatase 126 U/L (46-116) H Aspartate Amino Transferase (AST) 16 U/L (13-40) Total Bilirubin 0.2 mg/dL (0.2-1.0) Urinalysis Test 06/28/24 01:21 Urine Color Colorless (Yellow) Urine Clarity Turbid (Clear) H Urine pH 8.5 (5.0-9.0) Urine Specific [place] 1.012 (1.001-1.035) Urine Protein 3+ (Negative) H Urine Ketones Negative (Negative) Urine Blood 1+ /uL (Negative) H Urine Nitrite Negative (Negative) Urine Bilirubin Negative (Negative) Urine Urobilinogen Normal mg/dL (Negative) Urine Leukocyte Esterase 3+ /uL (Negative) Urine RBC 57 /hpf (0 - 3) Urine Microscopic WBC 926 /HPF (0-3) H Urine Squamous Epithelial Cells None seen /hpf (<5) Urine Bacteria None seen /hpf (None Seen) Urine Glucose 3+ mg/dL (Normal) H Labs and/or images reviewed: Labs reviewed by me, Image(s) reviewed by me Assessment/Plan Assessment/Plan Impression: -complicated cystitis with failure of oral antibiotic therapy -end-stage renal disease with hemodialysis -deconditioning with recent hip ORIF -anemia of chronic disease -diabetes mellitus -deep tissue injury to bilateral heels Plan: -nephrology consultation : Plans for hemodialysis today -check PSA -Continue with ertapenem -regular insulin sliding scale -blood and urine cultures pending -repeat labs with no noted acute changes. Total time spent with patient discussing and formulating plan of care: 35 minutes. This medical document was created using an electronic medical record system with [employer] dictation system. Although this document has been carefully reviewed, there may still be some phonetic and typographical errors. These areas are purely typographical due to imperfections of the software programs, and do not reflect any compromise in the patient's medical care. Plan discussed with: Patient, Other (RN) My Orders Orders - CHRISTIE العلي NP Procedure Category Date Status Time Ertapenem Sod Inj PHA 06/29/24 In Process (Invanz) 10:00 Urine Bacterial SHELDON 06/29/24 In Process Culture 10:20 * Wound Consult CONS 06/29/24 Transmitted Date of Service: Jun 29, 2024 Billing Provider: CHRISTIE العلي NP Common Visit Codes: [id number] INP/OBS CARE(HIGH) CHRISTIE العلي NP Jun 29, 2024 12:55
--- NOTE | 2024-06-29 13:50 | DVHPN2 ---
Progress Note Date Seen: Jun 29, 2024 Medical Necessity Reason Pt with a Central, PICC or Fol: No Subjective Patient reports: No new complaints Other Systems: Patient seen and examined by myself in follow-up today Patient examined hemodialysis, blood pressure stable Objective vital signs Vital Sign Date Time Temp Pulse Resp B/P (MAP) Pulse Ox O2 Delivery O2 Flow Rate FiO2 06/29/24 10:32 79 152/67 06/29/24 08:40 98.9 19 97 98.9 06/29/24 00:53 Room Air* 0 21 Total Intake and Output 06/28/24 06/28/24 06/29/24 15:00 23:00 07:00 Intake Total 50 ml 240 ml Balance 50 ml 240 ml medications Current Medications Medications Dose Ordered Sig/Mallorie Route Start Time Stop Time Status Last Admin Dose Admin Acetaminophen/ Hydrocodone Bitart 1 tab Q4HP PRN PO 06/28/24 07:00 Ondansetron HCl 4 mg Q4HP PRN IV 06/28/24 07:00 Acetaminophen 650 mg Q6HP PRN PO 06/28/24 07:00 Diagnostic Test (Pha) 1 strip ACHS 06/28/24 07:00 06/29/24 11:30 Insulin Human Regular ACHS SC 06/28/24 07:00 06/29/24 11:24 Dextrose 50 ml UD PRN IV 06/28/24 07:00 Patient Own Medication 1 tab DAILY PO 06/29/24 10:00 UNV Carvedilol 3.125 mg Q12HR PO 06/28/24 22:00 06/29/24 10:32 Atorvastatin Calcium 80 mg HS PO 06/28/24 22:00 06/28/24 22:29 Ertapenem 0.5 gm/ Sodium Chloride 50 ml @ 100 mls/hr DAILY IV 06/29/24 10:00 06/29/24 10:00 laboratory and microbiology Laboratory Tests 06/29/24 05:44 Test 06/29/24 05:44 Range/Units Serum Glucose 153 H 74-106 mg/dL Problem List/Assessment/Plan Problem List/Assessment/Plan End-stage renal disease on hemodialysis Urinary tract infection History of ESBL UTI Nephrolithiasis Diabetes mellitus type 2 Anemia of chronic kidney disease Recommendations Continue with UF 2 L as tolerated Epogen 35634 IV post hemodialysis Resume home medications Renal diet IV antibiotics Insulin sliding scale Urology consult We will continue to follow Plan discussed with: Patient My Orders My Orders Orders - AUTUMN LOCKHART MD Procedure Category Date Status Time Hemodialysis Orders ORDERS 06/29/24 Transmitted 07:00 Dialysis Nursing CÉSAR 06/29/24 In Process Message 07:00 Document Fluid Input CÉSAR 06/29/24 In Process And Outpu 07:00 Epoetin Shlomo-Epbx PHA 06/29/24 In Process (Retacrit) 21:00 Atorvastatin (Lipitor) PHA 06/28/24 In Process 22:00 AUTUMN LOCKHART MD Jun 29, 2024 13:50
[2024-06-29] MEDS ORDERED: CARV25TA55 PO (16:37)
[2024-06-29] MEDS ORDERED: ASPI-498 OR (16:37)
[2024-06-29] MEDS ORDERED: FAMO20TA10 PO (16:37)
[2024-06-29] MEDS ORDERED: GABA-1308 PO (16:37)
[2024-06-29] MEDS ORDERED: SEVE800T8 PO (16:37)
[2024-06-29] MEDS ORDERED: ROSU20TA14 PO (16:37)
[2024-06-29] MEDS ORDERED: AML5T PO (16:37)
[2024-06-29] MEDS ORDERED: DOCU-94 PO (16:37)
[2024-06-29] MEDS ORDERED: MECL-90 PO (16:37)
[2024-06-29] MEDS ORDERED: DULA1INJ SC (16:37)
[2024-06-29] MEDS ORDERED: B-COCAP23 PO (16:37)
[2024-06-29] MEDS ORDERED: HYDR50TA69 PO (16:37)
[2024-06-29] MEDS ORDERED: ACET120S38 PR (16:37)
[2024-06-29] MEDS ORDERED: TAMS-35 PO (16:37)
[2024-06-29] MEDS: EPOETIN ALFA-EPBX 10,000 UNIT/1ML VIAL SC ONE (20:58)
[2024-06-29] MEDS: ACETAMINOPHEN 325 MG TAB PO PRN (21:11)
[2024-06-30 01:00] VITALS: BP 137/77; PULSE 79; RESP 17; TEMP 97.3; O2SAT 100
[2024-06-30 05:00] VITALS: BP 136/69; PULSE 82; RESP 18; TEMP 97.8; O2SAT 94
[2024-06-30 09:00] VITALS: BP 145/74; PULSE 74; RESP 16; TEMP 98.1; O2SAT 97
--- NOTE | 2024-06-30 11:22 | DVHPN2 ---
Progress Note Date Seen: Jun 30, 2024 Medical Necessity Reason Pt with a Central, PICC or Fol: No Subjective Patient reports: No new complaints Other Systems: Patient seen and examined by myself today in follow-up Objective vital signs Vital Sign Date Time Temp Pulse Resp B/P (MAP) Pulse Ox O2 Delivery O2 Flow Rate FiO2 06/30/24 09:37 74 145/74 06/30/24 09:00 98.1 16 97 98.1 06/30/24 08:00 Room Air* 0 21 Total Intake and Output 06/29/24 06/29/24 06/30/24 15:00 23:00 07:00 Intake Total 50 ml 780 ml 375 ml Output Total 350 ml 350 ml Balance 50 ml 430 ml 25 ml medications Current Medications Medications Dose Ordered Sig/Mallorie Route Start Time Stop Time Status Last Admin Dose Admin Acetaminophen/ Hydrocodone Bitart 1 tab Q4HP PRN PO 06/28/24 07:00 Ondansetron HCl 4 mg Q4HP PRN IV 06/28/24 07:00 Acetaminophen 650 mg Q6HP PRN PO 06/28/24 07:00 06/30/24 03:31 650 MG Diagnostic Test (Pha) 1 strip ACHS 06/28/24 07:00 06/30/24 06:12 1 STRIP Insulin Human Regular ACHS SC 06/28/24 07:00 06/30/24 06:09 2 UNITS Dextrose 50 ml UD PRN IV 06/28/24 07:00 Patient Own Medication 1 tab DAILY PO 06/29/24 10:00 UNV Carvedilol 3.125 mg Q12HR PO 06/28/24 22:00 06/30/24 09:37 3.125 MG Atorvastatin Calcium 80 mg HS PO 06/28/24 22:00 06/29/24 21:11 80 MG Ertapenem 0.5 gm/ Sodium Chloride 50 ml @ 100 mls/hr DAILY IV 06/29/24 10:00 06/30/24 09:37 100 MLS/HR Examination: LUNGS:Normal, CVS:Normal, MSK:Normal laboratory and microbiology Laboratory Tests 06/29/24 05:44 Test 06/29/24 05:44 Range/Units Serum Glucose 153 H 74-106 mg/dL Problem List/Assessment/Plan Problem List/Assessment/Plan End-stage renal disease on hemodialysis Urinary tract infection History of ESBL UTI Nephrolithiasis Diabetes mellitus type 2 Anemia of chronic kidney disease Recommendations Hemodialysis tomorrow Epogen 70904 IV post hemodialysis Resume home medications Renal diet IV antibiotics Insulin sliding scale We will continue to follow Plan discussed with: Patient My Orders My Orders Orders - AUTUMN LOCKHART MD Procedure Category Date Status Time Hemodialysis Orders ORDERS 07/01/24 Transmitted 07:00 Dialysis Nursing CÉSAR 07/01/24 Transmitted Message 07:00 Heparin Sodium PHA 07/01/24 Transmitted (Porcine) 07:00 Heparin Sodium PHA 07/01/24 Transmitted (Porcine) 07:00 Sodium Chloride 0.9% PHA 07/01/24 Transmitted 07:00 Document Fluid Input CÉSAR 07/01/24 Transmitted And Outpu 07:00 Retacrit 10,000unit PHA 07/01/24 Transmitted Sc Xone 21:00 AUTUMN LOCKHART MD Jun 30, 2024 11:22
--- NOTE | 2024-06-30 11:36 | DVHPN2 ---
Subjective Patient continues to report having suprapubic pain. Reviewed: Care Plan, H&P, Labs, Medications, Previous Orders Changes from previous H/P or p: No Changes General: Per HPI Eyes: No Pain, No Vision change, No Conjunctivae inflammation, No Eyelid inflammation, No Other, No Redness ENT: No Ear pain, No Ear discharge, No Nose pain, No Nose discharge, No Nose congestion, No Mouth pain, No Mouth swelling, No Throat pain, No Throat swelling, No Other 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: No Chest Pain, No Palpitations, No Orthopnea, No Paroxysmal Noc. Dyspnea, No Edema, No Lt Headedness, No Other Respiratory: No Cough, No Dry, No Shortness of breath, No SOB with excertion, No Wheezing, No Hemoptysis, No Pleuritic Pain, No Sputum, No Other Gastrointestinal: No Nausea, No Vomiting, No Abdominal Pain, No Diarrhea, No Constipation, No Melena, No Hematochezia, No Other Genitourinary: Dysuria; No Frequency, No Incontinence, No Hematuria, No Retention, No Other Musculoskeletal: other (Hip pain); No neck pain, No shoulder pain, No arm pain, No back pain, No hand pain, No leg pain, No foot pain Skin: No Rash, No Lesions, No Jaundice, No Bruising, No Other Objective Vitals Vital Signs Date Time Temp Pulse Resp B/P (MAP) Pulse Ox O2 Delivery O2 Flow Rate FiO2 06/30/24 09:37 74 145/74 06/30/24 09:00 98.1 16 97 98.1 06/30/24 08:00 Room Air* 0 21 Intake/Output Intake and Output 06/30/24 07:00 Intake Total 1205 ml Output Total 700 ml Balance 505 ml Intake Oral 1155 ml IV Total 50 ml Output Urine Total 700 ml # Bowel Movements 1 General Appearance: Alert, Oriented X3, Cooperative, mild distress HEENT: Atraumatic, PERRLA Lungs: Clear to auscultation, Normal air movement 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: Normal S1, Normal S2 Abdomen: Normal bowel sounds Musculoskeletal: Normal sensory function, Normal motor function Extremities: No cyanosis Neuro: Normal gait, Normal speech Psych/Mental Status: Mental status NL, Mood NL Medications Current Medications Medications Dose Ordered Sig/Mallorie Route Start Time Stop Time Status Last Admin Dose Admin Acetaminophen/ Hydrocodone Bitart 1 tab Q4HP PRN PO 06/28/24 07:00 Ondansetron HCl 4 mg Q4HP PRN IV 06/28/24 07:00 Acetaminophen 650 mg Q6HP PRN PO 06/28/24 07:00 06/30/24 03:31 650 MG Diagnostic Test (Pha) 1 strip ACHS 06/28/24 07:00 06/30/24 06:12 1 STRIP Insulin Human Regular ACHS SC 06/28/24 07:00 06/30/24 06:09 2 UNITS Dextrose 50 ml UD PRN IV 06/28/24 07:00 Patient Own Medication 1 tab DAILY PO 06/29/24 10:00 UNV Carvedilol 3.125 mg Q12HR PO 06/28/24 22:00 06/30/24 09:37 3.125 MG Atorvastatin Calcium 80 mg HS PO 06/28/24 22:00 06/29/24 21:11 80 MG Ertapenem 0.5 gm/ Sodium Chloride 50 ml @ 100 mls/hr DAILY IV 06/29/24 10:00 06/30/24 09:37 100 MLS/HR Laboratory Results Laboratory Tests 06/29/24 05:44 Urinalysis Test 06/28/24 01:21 Urine Color Colorless (Yellow) Urine Clarity Turbid (Clear) H Urine pH 8.5 (5.0-9.0) Urine Specific [place] 1.012 (1.001-1.035) Urine Protein 3+ (Negative) H Urine Ketones Negative (Negative) Urine Blood 1+ /uL (Negative) H Urine Nitrite Negative (Negative) Urine Bilirubin Negative (Negative) Urine Urobilinogen Normal mg/dL (Negative) Urine Leukocyte Esterase 3+ /uL (Negative) Urine RBC 57 /hpf (0 - 3) Urine Microscopic WBC 926 /HPF (0-3) H Urine Squamous Epithelial Cells None seen /hpf (<5) Urine Bacteria None seen /hpf (None Seen) Urine Glucose 3+ mg/dL (Normal) H Labs and/or images reviewed: Labs reviewed by me, Image(s) reviewed by me Assessment/Plan Assessment/Plan Impression: -complicated cystitis with failure of oral antibiotic therapy -end-stage renal disease with hemodialysis -deconditioning with recent hip ORIF -anemia of chronic disease -diabetes mellitus -deep tissue injury to bilateral heels Plan: Events: Patient states that his suprapubic pain has improved. Denies any more fevers. -nephrology consultation : Plans for hemodialysis today -PSA level was normal -Continue with ertapenem -regular insulin sliding scale -blood and urine cultures pending -discharge planning once urine culture has been resulted. Total time spent with patient discussing and formulating plan of care: 35 minutes. This medical document was created using an electronic medical record system with [employer] dictation system. Although this document has been carefully reviewed, there may still be some phonetic and typographical errors. These areas are purely typographical due to imperfections of the software programs, and do not reflect any compromise in the patient's medical care. Plan discussed with: Patient, Other (RN) My Orders Orders - CHRISTIE العلي NP Procedure Category Date Status Time Basic Metabolic Panel LAB 07/01/24 Verified 04:00 Complete Blood Count LAB 07/01/24 Verified 04:00 Date of Service: Jun 30, 2024 Billing Provider: CHRISTIE العلي NP Common Visit Codes: [id number] INP/OBS CARE(HIGH) CHRISTIE العلي NP Jun 30, 2024 11:36
[2024-06-30 13:00] VITALS: BP 162/78; PULSE 80; RESP 17; TEMP 97.8; O2SAT 98
[2024-06-30] MEDS ORDERED: HYDROcodone-ACET 5/325MG TAB PO PRN (15:15)
[2024-06-30] MEDS: OXYBUTYNIN CHL 5 MG TAB PO ONE (15:35)
[2024-06-30] MEDS: MORPHINE SULFATE INJ 2 MG/ml SYRG IV PRN (15:55)
[2024-06-30 17:00] VITALS: BP 154/64; PULSE 89; RESP 17; TEMP 97.4; O2SAT 94
[2024-06-30] MEDS ORDERED: PHENAZOPYRIDINE HCL 100 MG TAB PO SCH (22:00)
[2024-06-30 22:25] VITALS: BP 146/65; PULSE 82; RESP 17; TEMP 98.7; O2SAT 98
[2024-07-01] VITALS (7 sets, daily range): BP systolic 121–149; BP diastolic 51–77; PULSE 73–85; RESP 16–18; TEMP 97.5–98.2; O2SAT 84–99
[2024-07-01 07:25] LABS: Anion Gap 8 (5-15); Carbon Dioxide 27 mmol/L (20-31); Chloride 100 mmol/L (98-107)
[2024-07-01 07:27] LABS: Calcium 9.3 mg/dL (8.7-10.4)
[2024-07-01 07:31] LABS: Sodium 135 mmol/L (136-145)
[2024-07-01 07:32] LABS: BUN/Creatinine Ratio 8.2 (10.0-20.0); Blood Urea Nitrogen 28 mg/dL (9-23); Glucose 140 mg/dL (74-106)
[2024-07-01 07:46] LABS: Basophils # (auto) 0.1 10 ^3/uL (0-0.2); Eosinophils # (auto) 0.2 10 ^3/uL (0-0.8); Hemoglobin 8.3 g/dL (13.5-17.5); Mean Corpuscular Volume 90.8 fL (80.0-100.0); Neutrophils # (auto) 2.4 10 ^3/uL (1.6-8.6); Nucleated Red Blood Cells % 0.1 %; White Blood Cell 5.2 10^3/uL (4.4-10.8)
[2024-07-01 07:48] LABS: Eosinophils % (auto) 4.4 % (0.0-7.0); Lymphocytes % (auto) 39.2 % (10.0-50.0); Mean Corpuscular Hemoglobin 30.4 pg (28.0-32.0); Mean Corpuscular Hgb Conc. 33.4 g/dL (32.0-36.0); Monocytes # (auto) 0.4 10 ^3/uL (0-1.3); Monocytes % (auto) 8.6 % (0.0-12.0); Neutrophils % (auto) 46.8 % (37.0-80.0); Platelet Count (auto) 184 10^3/uL (140-450); Red Blood Cells 2.75 10^6/uL (4.5-5.90)
--- NOTE | 2024-07-01 10:42 | DVHPN2 ---
Progress Note Date Seen: Jul 01, 2024 Medical Necessity Reason Pt with a Central, PICC or Fol: No Subjective Patient reports: No new complaints Other Systems: Seen and examined by myself today in follow-up Patient examined hemodialysis, blood pressure stable Objective vital signs Vital Sign Date Time Temp Pulse Resp B/P (MAP) Pulse Ox O2 Delivery O2 Flow Rate FiO2 07/01/24 09:24 99 136/58 07/01/24 08:47 98.2 16 99 98.2 06/30/24 08:00 Room Air* 0 21 Total Intake and Output 06/30/24 06/30/24 07/01/24 15:00 23:00 07:00 Intake Total 50 ml 600 ml 400 ml Output Total 300 ml 750 ml Balance 50 ml 300 ml -350 ml medications Current Medications Medications Dose Ordered Sig/Mallorie Route Start Time Stop Time Status Last Admin Dose Admin Ondansetron HCl 4 mg Q4HP PRN IV 06/28/24 07:00 Acetaminophen 650 mg Q6HP PRN PO 06/28/24 07:00 06/30/24 13:39 650 MG Diagnostic Test (Pha) 1 strip ACHS 06/28/24 07:00 07/01/24 06:00 1 STRIP Insulin Human Regular ACHS SC 06/28/24 07:00 07/01/24 06:01 2 UNITS Dextrose 50 ml UD PRN IV 06/28/24 07:00 Patient Own Medication 1 tab DAILY PO 06/29/24 10:00 UNV Carvedilol 3.125 mg Q12HR PO 06/28/24 22:00 07/01/24 09:24 3.125 MG Atorvastatin Calcium 80 mg HS PO 06/28/24 22:00 06/30/24 21:44 80 MG Ertapenem 0.5 gm/ Sodium Chloride 50 ml @ 100 mls/hr DAILY IV 06/29/24 10:00 07/01/24 09:00 100 MLS/HR Morphine Sulfate 1 mg Q4HPRN PRN IV 06/30/24 15:15 06/30/24 15:55 1 MG Acetaminophen/ Hydrocodone Bitart 1 tab Q6HPRN PRN PO 06/30/24 15:15 Phenazopyridine HCl 100 mg BID PO 06/30/24 22:00 Hold Examination: LUNGS:Normal, CVS:Normal, MSK:Normal laboratory and microbiology Laboratory Tests 07/01/24 05:43 Test 07/01/24 05:43 Range/Units Serum Glucose 140 H 74-106 mg/dL Microbiology Date/Time Source Procedure Growth Status 06/29/24 10:30 Urine - [place] Urine Culture - Preliminary Resulted Problem List/Assessment/Plan Problem List/Assessment/Plan End-stage renal disease on hemodialysis Urinary tract infection History of ESBL UTI Nephrolithiasis Diabetes mellitus type 2 Anemia of chronic kidney disease Recommendations Continue with UF to 3 L as tolerated Epogen 07874 IV post hemodialysis Resume home medications Renal diet IV antibiotics Insulin sliding scale We will continue to follow Plan discussed with: Patient My Orders My Orders Orders - AUTUMN LOCKHART MD Procedure Category Date Status Time Hemodialysis Orders ORDERS 07/01/24 Transmitted 07:00 Dialysis Nursing CÉSAR 07/01/24 In Process Message 07:00 Document Fluid Input CÉSAR 07/01/24 In Process And Outpu 07:00 Epoetin Shlomo-Epbx PHA 07/01/24 In Process (Retacrit) 21:00 AUTUMN LOCKHART MD Jul 01, 2024 10:42
[2024-07-01] MEDS: Nepro With Carbsteady Vanilla 8oz Carton PO SCH (12:02)
[2024-07-01] MEDS: SODIUM CHL 0.9% 1000 ML BAG XX ONE ×2 (17:56)
[2024-07-01] MEDS: ALBUMIN 25% 100 ML IV ONE ×2 (17:57)
[2024-07-01] MEDS: CATHFLO ACTIVASE (ALTEPLASE) 2 MG VIAL IV ONE (17:57)
[2024-07-01] MEDS: EPOETIN ALFA-EPBX 10,000 UNIT/1ML VIAL SC ONE (21:27)
[2024-07-02 01:00] VITALS: BP 127/69; PULSE 79; RESP 16; TEMP 97.9; O2SAT 98
[2024-07-02 05:00] VITALS: BP 135/72; PULSE 79; RESP 16; TEMP 98.3; O2SAT 98
[2024-07-02 09:30] VITALS: BP 140/69; PULSE 72; RESP 17; TEMP 98; O2SAT 98
--- NOTE | 2024-07-02 10:15 | DVHPN2 ---
Progress Note Date Seen: Jul 02, 2024 Medical Necessity Reason Pt with a Central, PICC or Fol: No Subjective Patient reports: No new complaints Other Systems: Patient seen and examined by myself today in follow-up Objective vital signs Vital Sign Date Time Temp Pulse Resp B/P (MAP) Pulse Ox O2 Delivery O2 Flow Rate FiO2 07/02/24 09:30 98.0 72 17 140/69 (92) 98 98.0 07/01/24 20:00 Room Air* 0 21 Total Intake and Output 07/01/24 07/01/24 07/02/24 15:00 23:00 07:00 Intake Total 50 ml 252 ml Output Total 450 ml 150 ml Balance 50 ml -450 ml 102 ml medications Current Medications Medications Dose Ordered Sig/Mallorie Route Start Time Stop Time Status Last Admin Dose Admin Ondansetron HCl 4 mg Q4HP PRN IV 06/28/24 07:00 Acetaminophen 650 mg Q6HP PRN PO 06/28/24 07:00 06/30/24 13:39 650 MG Diagnostic Test (Pha) 1 strip ACHS 06/28/24 07:00 07/02/24 05:56 1 STRIP Insulin Human Regular ACHS SC 06/28/24 07:00 07/02/24 06:01 3 UNITS Dextrose 50 ml UD PRN IV 06/28/24 07:00 Patient Own Medication 1 tab DAILY PO 06/29/24 10:00 UNV Carvedilol 3.125 mg Q12HR PO 06/28/24 22:00 07/02/24 09:05 3.125 MG Atorvastatin Calcium 80 mg HS PO 06/28/24 22:00 07/01/24 21:30 80 MG Ertapenem 0.5 gm/ Sodium Chloride 50 ml @ 100 mls/hr DAILY IV 06/29/24 10:00 07/02/24 09:06 100 MLS/HR Morphine Sulfate 1 mg Q4HPRN PRN IV 06/30/24 15:15 06/30/24 15:55 1 MG Acetaminophen/ Hydrocodone Bitart 1 tab Q6HPRN PRN PO 06/30/24 15:15 Phenazopyridine HCl 100 mg BID PO 06/30/24 22:00 Hold Enteral Nutritional Formula 240 ml DAILY@LUNCH PO 07/01/24 12:00 07/01/24 12:02 240 ML Examination: LUNGS:Normal, CVS:Normal, MSK:Normal laboratory and microbiology Laboratory Tests 07/01/24 05:43 Test 07/01/24 05:43 Range/Units Serum Glucose 140 H 74-106 mg/dL Microbiology Date/Time Source Procedure Growth Status 06/29/24 10:30 Urine - [place] Urine Culture - Preliminary Resulted Problem List/Assessment/Plan Problem List/Assessment/Plan End-stage renal disease on hemodialysis Urinary tract infection History of ESBL UTI Nephrolithiasis Diabetes mellitus type 2 Anemia of chronic kidney disease Recommendations Next hemodialysis with 07/04 Epogen 14588 IV post hemodialysis Resume home medications Renal diet IV antibiotics Insulin sliding scale We will continue to follow Plan discussed with: Patient My Orders My Orders Orders - AUTUMN LOCKHART MD Procedure Category Date Status Time * Radiologist Consult CONS 07/01/24 Transmitted 16:05 Dietary Evaluation Review Recommendations by RD: Protein Supplementation Comments: 1) Add renal restriction to cardiac diet order 2) Initiate Nepro qd 2) Vitamin C @ 500 mg bid 3) Zn sulfate @ 220 mg qd 4) Monitor PO intake, skin integrity, and labs Expected Outcomes/Goals: 1) labs and appetite to improve 2) wound to improve 3) f/u in 3-5 days AUTUMN LOCKHART MD Jul 02, 2024 10:15
[2024-07-02 13:00] VITALS: BP 148/75; PULSE 79; RESP 18; TEMP 98; O2SAT 97
[2024-07-02 16:00] VITALS: BP_SYST 122; BP_SYST 158; BP_DIAS 75; BP_DIAS 82; PULSE 40; PULSE 79; RESP 17; RESP 19; TEMP 97.9; O2SAT 100; O2SAT 93
[2024-07-02 21:00] VITALS: BP 139/74; PULSE 76; RESP 17; TEMP 98.3; O2SAT 94
[2024-07-03] VITALS (12 sets, daily range): BP systolic 143–160; BP diastolic 73–84; PULSE 67–82; RESP 13–20; TEMP 97.3–98.3; O2SAT 95–100
--- NOTE | 2024-07-03 09:53 | DVHPN2 ---
Progress Note Date Seen: Jul 03, 2024 Medical Necessity Reason Pt with a Central, PICC or Fol: No Subjective Patient reports: Feels better Objective vital signs Vital Sign Date Time Temp Pulse Resp B/P (MAP) Pulse Ox O2 Delivery O2 Flow Rate FiO2 07/03/24 09:00 97.8 76 20 143/73 (96) 96 97.8 07/02/24 20:00 Room Air* 0 21 Total Intake and Output 07/02/24 07/02/24 07/03/24 15:00 23:00 07:00 Intake Total 690 ml 240 ml Output Total 300 ml Balance 690 ml -60 ml medications Current Medications Medications Dose Ordered Sig/Mallorie Route Start Time Stop Time Status Last Admin Dose Admin Ondansetron HCl 4 mg Q4HP PRN IV 06/28/24 07:00 Acetaminophen 650 mg Q6HP PRN PO 06/28/24 07:00 07/03/24 00:36 650 MG Diagnostic Test (Pha) 1 strip ACHS 06/28/24 07:00 07/03/24 06:16 1 STRIP Insulin Human Regular ACHS SC 06/28/24 07:00 07/03/24 06:20 3 UNITS Dextrose 50 ml UD PRN IV 06/28/24 07:00 Patient Own Medication 1 tab DAILY PO 06/29/24 10:00 UNV Carvedilol 3.125 mg Q12HR PO 06/28/24 22:00 07/02/24 21:22 3.125 MG Atorvastatin Calcium 80 mg HS PO 06/28/24 22:00 07/02/24 21:21 80 MG Ertapenem 0.5 gm/ Sodium Chloride 50 ml @ 100 mls/hr DAILY IV 06/29/24 10:00 07/02/24 09:06 100 MLS/HR Morphine Sulfate 1 mg Q4HPRN PRN IV 06/30/24 15:15 06/30/24 15:55 1 MG Acetaminophen/ Hydrocodone Bitart 1 tab Q6HPRN PRN PO 06/30/24 15:15 Phenazopyridine HCl 100 mg BID PO 06/30/24 22:00 Hold Enteral Nutritional Formula 240 ml DAILY@LUNCH PO 07/01/24 12:00 07/02/24 12:00 240 ML Examination: GENERAL:Normal laboratory and microbiology Laboratory Tests 07/01/24 05:43 Test 07/01/24 05:43 Range/Units Serum Glucose 140 H 74-106 mg/dL Microbiology Date/Time Source Procedure Growth Status 06/29/24 10:30 Urine - [place] Urine Culture - Preliminary Resulted Problem List/Assessment/Plan Problem List/Assessment/Plan End-stage renal disease on hemodialysis Urinary tract infection History of ESBL UTI Nephrolithiasis Diabetes mellitus type 2 Anemia of chronic kidney disease hemodialysis with 07/04 Epogen 37939 IV post hemodialysis Resume home medications Renal diet IV antibiotics Insulin sliding scale Plan discussed with: Patient Dietary Evaluation Review Recommendations by RD: Protein Supplementation Comments: 1) Add renal restriction to cardiac diet order 2) Initiate Nepro qd 2) Vitamin C @ 500 mg bid 3) Zn sulfate @ 220 mg qd 4) Monitor PO intake, skin integrity, and labs Expected Outcomes/Goals: 1) labs and appetite to improve 2) wound to improve 3) f/u in 3-5 days GORAN GARCIA MD Jul 03, 2024 09:53
[2024-07-03] MEDS: MIDAZOLAM HCL 2MG/2ML 2ml VIAL (1mg/ml) ONE (10:03)
[2024-07-03] MEDS: fentaNYL CITRATE 100 MCG/2 ML VL ONE (10:03)
--- NOTE | 2024-07-03 10:04 | ECG ---
[facility] Test Date: 2024-07-03 Test Time: 10:02:05 Pat Name: RPECIOUS BERRY Department: Room: 0209 Gender: M Investigative Writer: Dio VANCE : 1945 Requested By: NANDO DUNAWAY Order Number: [id number] Reading MD: Ash Huerta Measurements Intervals [place] Rate: 71 P: 66 AL: 172 QRS: 60 QRSD: 88 T: 65 QT: 392 QTc: 425 Interpretive Statements Normal sinus rhythm Minimal voltage criteria for LVH, may be normal variant Electronically Signed On 07-05-2024 10:08:39 PST by Ash Huerta Please click the below link to view image of tracing.
[2024-07-03] MEDS: HEPARIN SODIUM (PORCINE) 5000 UNITS/ML 1ML VIAL ONE (10:23)
[2024-07-03] MEDS: LIDOCAINE 2%HCL (LOCAL ANESTH.) INJ 20ML MDV ONE (10:23)
[2024-07-03 10:30] LABS: INR 1.11 (0.9-1.15); Partial Thromboplastin Time 26.7 SEC (24.5-34.5); Prothrombin Time 11.6 sec (9.3-11.8)
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
--- NOTE | 2024-07-03 12:05 | DVH ---
XY Insertion of Venous Cath, HISTORY: HD CATH PL PROCEDURE: Informed consent was obtained. The patient was placed supine on the interventional table. Quality Control Specialist film was obtained. Time out was performed. IV sedation was administered. The right neck base an d upper chest were prepped with chlorhexidine which was allowed to dry and draped in the usual steril e fashion. The skin and the soft tissues of the right upper chest were infiltrated with 1% Lidocaine . A stiff Glidewire was passed through the existing TD catheter into the IVC. The TD catheter was remov ed over the wire after manual dissection around the catheter cuff, and manual pressure was held over the right internal jugular vein. The new 14.5 Fr x 19 cm tunneled hemodialysis catheter was advanced over the wire into the right atrium. The wire was removed. The catheter tip position was confirmed w ith fluoroscopy. There was satisfactory flow. The catheter lumen was flushed with saline and heparin was left indwelling in the catheter. A post-procedure image of the chest was obtained. The catheter was sutured at the skin surface . No immediate complication was identified. DAP 25 FLUOROSCOPY TIME: 0.7 minutes . SEDATION: Dr. Brittany Urias was personally responsible for the administration of moderate sedation during the procedure performed, including the use of an independent trained observer who had no other duties during the procedure. The drugs utilized were IV fentanyl and versed (see nursing log for details). The total time of supervision by the attending physician was approximately 45 minutes. FINDINGS: Widely patent right IJV. Post procedure image demonstrates smooth course of the Villanueva cat heter in the right upper chest, with the tip in the right atrium. IMPRESSION: Exchange of a 14.5 Fr x 19 cm tunneled hemodialysis catheter.
--- NOTE | 2024-07-03 12:29 | DVH ---
CHEST RADIOGRAPH Indication: CURRENT TD CATHETER PLACEMENT Technique: Single frontal view of the chest was obtained Comparison: None FINDINGS: Lines and Tubes: Right tunneled Hd. Lungs: No focal consolidation. Pleura: No effusion. No pneumothorax. Cardiomediastinal contours: Unremarkable Bones: No acute osseous abnormality. IMPRESSION: No acute cardiopulmonary disease.
[2024-07-04] VITALS (7 sets, daily range): BP systolic 112–178; BP diastolic 58–87; PULSE 71–85; RESP 15–19; TEMP 97.4–98.3; O2SAT 94–99
[2024-07-04 06:03] LABS: Basophils # (auto) 0 10 ^3/uL (0-0.2); Basophils % (auto) 0.8 % (0.0-2.0); Eosinophils # (auto) 0.3 10 ^3/uL (0-0.8); Eosinophils % (auto) 5.8 % (0.0-7.0); Hematocrit 27.8 % (41.0-53.0); Hemoglobin 9.1 g/dL (13.5-17.5); Lymphocytes # (auto) 2.1 10 ^3/uL (0.4-5.4); Lymphocytes % (auto) 35.4 % (10.0-50.0); Mean Corpuscular Hemoglobin 29.8 pg (28.0-32.0); Mean Corpuscular Hgb Conc. 32.8 g/dL (32.0-36.0); Monocytes # (auto) 0.5 10 ^3/uL (0-1.3); Monocytes % (auto) 9.1 % (0.0-12.0); Neutrophils # (auto) 2.9 10 ^3/uL (1.6-8.6); Neutrophils % (auto) 48.9 % (37.0-80.0); Nucleated Red Blood Cells % 0.1 %; Platelet Count (auto) 176 10^3/uL (140-450); Red Blood Cells 3.06 10^6/uL (4.5-5.90); Red Cell Distribution Width 18.8 % (11.8-14.3); White Blood Cell 5.9 10^3/uL (4.4-10.8)
[2024-07-04 06:18] LABS: Chloride 101 mmol/L (98-107)
[2024-07-04 06:19] LABS: Anion Gap 9 (5-15); Calcium 10.2 mg/dL (8.7-10.4); Carbon Dioxide 25 mmol/L (20-31)
[2024-07-04 06:20] LABS: Sodium 135 mmol/L (136-145)
[2024-07-04 06:24] LABS: BUN/Creatinine Ratio 11.8 (10.0-20.0); Potassium 5.6 mmol/L (3.5-5.1)
[2024-07-04 06:27] LABS: Blood Urea Nitrogen 41 mg/dL (9-23); Glucose 190 mg/dL (74-106)
[2024-07-04 06:48] LABS: Platelet Estimate Adequate
[2024-07-04 06:49] LABS: Anisocytosis Slight
--- NOTE | 2024-07-04 09:46 | DVHPN2 ---
Subjective Patient continues to report having suprapubic pain. Reviewed: Care Plan, H&P, Labs, Medications, Previous Orders Changes from previous H/P or p: No Changes General: Per HPI Eyes: No Pain, No Vision change, No Conjunctivae inflammation, No Eyelid inflammation, No Other, No Redness ENT: No Ear pain, No Ear discharge, No Nose pain, No Nose discharge, No Nose congestion, No Mouth pain, No Mouth swelling, No Throat pain, No Throat swelling, No Other 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: No Chest Pain, No Palpitations, No Orthopnea, No Paroxysmal Noc. Dyspnea, No Edema, No Lt Headedness, No Other Respiratory: No Cough, No Dry, No Shortness of breath, No SOB with excertion, No Wheezing, No Hemoptysis, No Pleuritic Pain, No Sputum, No Other Gastrointestinal: No Nausea, No Vomiting, No Abdominal Pain, No Diarrhea, No Constipation, No Melena, No Hematochezia, No Other Genitourinary: Dysuria; No Frequency, No Incontinence, No Hematuria, No Retention, No Other Musculoskeletal: other (Hip pain); No neck pain, No shoulder pain, No arm pain, No back pain, No hand pain, No leg pain, No foot pain Skin: No Rash, No Lesions, No Jaundice, No Bruising, No Other Objective Vitals Vital Signs Date Time Temp Pulse Resp B/P (MAP) Pulse Ox O2 Delivery O2 Flow Rate FiO2 07/04/24 08:00 Room Air* 0 21 07/04/24 05:01 97.4 78 15 154/79 (104) 97 97.4 Intake/Output Intake and Output 07/04/24 07:00 Intake Total 1404 ml Output Total 800 ml Balance 604 ml Intake Oral 1354 ml IV Total 50 ml Output Urine Total 800 ml # Voids 1 # Bowel Movements 1 General Appearance: Alert, Oriented X3, Cooperative, mild distress HEENT: Atraumatic, PERRLA Lungs: Clear to auscultation, Normal air movement 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: Normal S1, Normal S2 Abdomen: Normal bowel sounds Musculoskeletal: Normal sensory function, Normal motor function Extremities: No cyanosis Neuro: Normal gait, Normal speech Psych/Mental Status: Mental status NL, Mood NL Medications Current Medications Medications Dose Ordered Sig/Mallorie Route Start Time Stop Time Status Last Admin Dose Admin Ondansetron HCl 4 mg Q4HP PRN IV 06/28/24 07:00 Acetaminophen 650 mg Q6HP PRN PO 06/28/24 07:00 07/03/24 00:36 650 MG Diagnostic Test (Pha) 1 strip ACHS 06/28/24 07:00 07/04/24 06:07 1 STRIP Insulin Human Regular ACHS SC 06/28/24 07:00 07/04/24 06:11 3 UNITS Dextrose 50 ml UD PRN IV 06/28/24 07:00 Patient Own Medication 1 tab DAILY PO 06/29/24 10:00 UNV Carvedilol 3.125 mg Q12HR PO 06/28/24 22:00 07/03/24 21:47 3.125 MG Atorvastatin Calcium 80 mg HS PO 06/28/24 22:00 07/03/24 21:47 80 MG Ertapenem 0.5 gm/ Sodium Chloride 50 ml @ 100 mls/hr DAILY IV 06/29/24 10:00 07/03/24 12:07 100 MLS/HR Morphine Sulfate 1 mg Q4HPRN PRN IV 06/30/24 15:15 06/30/24 15:55 1 MG Acetaminophen/ Hydrocodone Bitart 1 tab Q6HPRN PRN PO 06/30/24 15:15 Phenazopyridine HCl 100 mg BID PO 06/30/24 22:00 Hold Enteral Nutritional Formula 240 ml DAILY@LUNCH PO 07/01/24 12:00 07/03/24 12:07 240 ML Laboratory Results Laboratory Tests 07/04/24 05:36 Chemistry Test 07/04/24 05:36 Calcium Level 10.2 mg/dL (8.7-10.4) Coagulation Test 07/03/24 10:00 Prothrombin Time 11.6 sec (9.3-11.8) Prothrombin Time INR 1.11 (0.9-1.15) Activated Partial Thromboplast Time 26.7 SEC (24.5-34.5) Urinalysis Test 06/28/24 01:21 Urine Color Colorless (Yellow) Urine Clarity Turbid (Clear) H Urine pH 8.5 (5.0-9.0) Urine Specific [place] 1.012 (1.001-1.035) Urine Protein 3+ (Negative) H Urine Ketones Negative (Negative) Urine Blood 1+ /uL (Negative) H Urine Nitrite Negative (Negative) Urine Bilirubin Negative (Negative) Urine Urobilinogen Normal mg/dL (Negative) Urine Leukocyte Esterase 3+ /uL (Negative) Urine RBC 57 /hpf (0 - 3) Urine Microscopic WBC 926 /HPF (0-3) H Urine Squamous Epithelial Cells None seen /hpf (<5) Urine Bacteria None seen /hpf (None Seen) Urine Glucose 3+ mg/dL (Normal) H Microbiology Microbiology Date/Time Source Procedure Growth Status 06/29/24 10:30 Urine - [place] Urine Culture - Preliminary Escherichia coli - ESBL Resulted Labs and/or images reviewed: Labs reviewed by me, Image(s) reviewed by me Assessment/Plan Assessment/Plan Impression: -complicated cystitis with failure of oral antibiotic therapy -end-stage renal disease with hemodialysis -deconditioning with recent hip ORIF -anemia of chronic disease -diabetes mellitus -deep tissue injury to bilateral heels Plan: Events: Patient discharged yesterday. Pending home IV antibiotic therapy for ESBL in the urine. Midline has been placed. Discharged today after hemodialysis given patient was hyperkalemic. -nephrology consultation : Plans for hemodialysis today -PSA level was normal -Continue with ertapenem -regular insulin sliding scale Total time spent with patient discussing and formulating plan of care: 35 minutes. This medical document was created using an electronic medical record system with [employer] dictation system. Although this document has been carefully reviewed, there may still be some phonetic and typographical errors. These areas are purely typographical due to imperfections of the software programs, and do not reflect any compromise in the patient's medical care. Plan discussed with: Patient, Other (RN) My Orders Orders - CHRISTIE العلي NP Procedure Category Date Status Time Insertion Of Venous XY 07/03/24 Resulted Cath 10:42 * Substation Inspector CONS 07/03/24 Transmitted Consult Discharge DISCHARGE 07/03/24 Transmitted 13:54 Insert Midline ORDERS 07/03/24 Transmitted 14:12 Date of Service: Jul 04, 2024 Billing Provider: CHRISTIE العلي NP Common Visit Codes: [id number] INP/OBS CARE(HIGH) CHRISTIE العلي NP Jul 04, 2024 09:46
--- NOTE | 2024-07-04 10:39 | DVHPN2 ---
Progress Note Date Seen: Jul 04, 2024 Medical Necessity Reason Pt with a Central, PICC or Fol: No Subjective Patient reports: No new complaints Objective vital signs Vital Sign Date Time Temp Pulse Resp B/P (MAP) Pulse Ox O2 Delivery O2 Flow Rate FiO2 07/04/24 08:00 Room Air* 0 21 07/04/24 05:01 97.4 78 15 154/79 (104) 97 97.4 Total Intake and Output 07/03/24 07/03/24 07/04/24 15:00 23:00 07:00 Intake Total 50 ml 940 ml 414 ml Output Total 300 ml 500 ml Balance 50 ml 640 ml -86 ml medications Current Medications Medications Dose Ordered Sig/Mallorie Route Start Time Stop Time Status Last Admin Dose Admin Ondansetron HCl 4 mg Q4HP PRN IV 06/28/24 07:00 Acetaminophen 650 mg Q6HP PRN PO 06/28/24 07:00 07/03/24 00:36 650 MG Diagnostic Test (Pha) 1 strip ACHS 06/28/24 07:00 07/04/24 06:07 1 STRIP Insulin Human Regular ACHS SC 06/28/24 07:00 07/04/24 06:11 3 UNITS Dextrose 50 ml UD PRN IV 06/28/24 07:00 Patient Own Medication 1 tab DAILY PO 06/29/24 10:00 UNV Carvedilol 3.125 mg Q12HR PO 06/28/24 22:00 07/03/24 21:47 3.125 MG Atorvastatin Calcium 80 mg HS PO 06/28/24 22:00 07/03/24 21:47 80 MG Ertapenem 0.5 gm/ Sodium Chloride 50 ml @ 100 mls/hr DAILY IV 06/29/24 10:00 07/03/24 12:07 100 MLS/HR Morphine Sulfate 1 mg Q4HPRN PRN IV 06/30/24 15:15 06/30/24 15:55 1 MG Acetaminophen/ Hydrocodone Bitart 1 tab Q6HPRN PRN PO 06/30/24 15:15 Phenazopyridine HCl 100 mg BID PO 06/30/24 22:00 Hold Enteral Nutritional Formula 240 ml DAILY@LUNCH PO 07/01/24 12:00 07/03/24 12:07 240 ML Examination: GENERAL:Abnormal, CVS:Normal laboratory and microbiology Laboratory Tests 07/04/24 05:36 Test 07/04/24 05:36 Range/Units Serum Glucose 190 H 74-106 mg/dL Microbiology Date/Time Source Procedure Growth Status 06/29/24 10:30 Urine - [place] Urine Culture - Preliminary Escherichia coli - ESBL Resulted Problem List/Assessment/Plan Problem List/Assessment/Plan End-stage renal disease on hemodialysis Urinary tract infection History of ESBL UTI Nephrolithiasis Diabetes mellitus type 2 Anemia of chronic kidney disease hemodialysis today 2K bath Epogen 41451 3x a week SubQ Resume home medications Renal diet IV antibiotics Insulin sliding scale Plan discussed with: Patient My Orders My Orders Orders - GORAN GARCIA MD Procedure Category Date Status Time Hemodialysis Orders ORDERS 07/04/24 Transmitted 10:35 Dialysis Nursing CÉSAR 07/04/24 Transmitted Message 10:35 Heparin Sodium PHA 07/04/24 Transmitted (Porcine) 10:45 Heparin Sodium PHA 07/04/24 Transmitted (Porcine) 10:45 Heparin Sodium PHA 07/04/24 Transmitted (Porcine) 10:45 Sodium Chloride 0.9% PHA 07/04/24 Transmitted 10:45 Document Fluid Input CÉSAR 07/04/24 Transmitted And Outpu 10:35 Retacrit 10,000unit PHA 07/04/24 Transmitted Sc Xone 10:45 Dietary Evaluation Review Recommendations by RD: Protein Supplementation Comments: 1) Add renal restriction to cardiac diet order 2) Initiate Nepro qd 2) Vitamin C @ 500 mg bid 3) Zn sulfate @ 220 mg qd 4) Monitor PO intake, skin integrity, and labs Expected Outcomes/Goals: 1) labs and appetite to improve 2) wound to improve 3) f/u in 3-5 days GORAN GARCIA MD Jul 04, 2024 10:39
[2024-07-04] MEDS: SODIUM CHL 0.9% 1000 ML BAG XX ONE (10:45)
[2024-07-04] MEDS ORDERED: EPOETIN ALFA-EPBX 10,000 UNIT/1ML VIAL SC SCH (10:45)
--- NOTE | 2024-07-04 11:14 | ECG ---
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
--- NOTE | 2024-07-04 11:16 | ECG ---
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
--- NOTE | 2024-07-04 11:16 | ECG ---
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
--- NOTE | 2024-07-04 17:23 | MEDREC ---
[facility] Intervention Section I [facility] Intervention: Review courses of therapy (PLEASE CONSIDER REVIEWING COURSES OF THERAPY ACCORDING TO CULTURE RESULTS) KATHARINE HAN PHARMACIST Jul 04, 2024 17:23
[2024-07-04] MEDS: EPOETIN ALFA-EPBX 10,000 UNIT/1ML VIAL SC SCH (20:28)
[2024-07-05 01:00] VITALS: BP 117/54; PULSE 80; RESP 18; TEMP 97.4; O2SAT 95
[2024-07-05 05:00] VITALS: BP 109/57; PULSE 72; RESP 19; TEMP 98.3; O2SAT 96
[2024-07-05 08:15] VITALS: PULSE 74; RESP 15; O2SAT 98
[2024-07-05 08:46] VITALS: BP 118/59; PULSE 74; RESP 15; TEMP 97.7; O2SAT 98
--- NOTE | 2024-07-05 09:17 | DVHPN2 ---
Progress Note Date Seen: Jul 05, 2024 Medical Necessity Reason Pt with a Central, PICC or Fol: Yes The following are medically ne: PICC Line Objective vital signs Vital Sign Date Time Temp Pulse Resp B/P (MAP) Pulse Ox O2 Delivery O2 Flow Rate FiO2 07/05/24 08:46 97.7 74 15 118/59 (78) 98 97.7 07/04/24 20:00 Room Air* 0 21 Total Intake and Output 07/04/24 07/04/24 07/05/24 15:00 23:00 07:00 Intake Total 730 ml 789 ml 500 ml Output Total 600 ml 250 ml 180 ml Balance 130 ml 539 ml 320 ml medications Current Medications Medications Dose Ordered Sig/Mallorie Route Start Time Stop Time Status Last Admin Dose Admin Ondansetron HCl 4 mg Q4HP PRN IV 06/28/24 07:00 Acetaminophen 650 mg Q6HP PRN PO 06/28/24 07:00 07/04/24 20:27 650 MG Diagnostic Test (Pha) 1 strip ACHS 06/28/24 07:00 07/05/24 06:09 1 STRIP Insulin Human Regular ACHS SC 06/28/24 07:00 07/05/24 06:09 3 UNITS Dextrose 50 ml UD PRN IV 06/28/24 07:00 Patient Own Medication 1 tab DAILY PO 06/29/24 10:00 UNV Carvedilol 3.125 mg Q12HR PO 06/28/24 22:00 07/04/24 21:31 3.125 MG Atorvastatin Calcium 80 mg HS PO 06/28/24 22:00 07/04/24 21:30 80 MG Ertapenem 0.5 gm/ Sodium Chloride 50 ml @ 100 mls/hr DAILY IV 06/29/24 10:00 07/04/24 11:57 100 MLS/HR Morphine Sulfate 1 mg Q4HPRN PRN IV 06/30/24 15:15 06/30/24 15:55 1 MG Acetaminophen/ Hydrocodone Bitart 1 tab Q6HPRN PRN PO 06/30/24 15:15 Phenazopyridine HCl 100 mg BID PO 06/30/24 22:00 Hold Enteral Nutritional Formula 240 ml DAILY@LUNCH PO 07/01/24 12:00 07/03/24 12:07 240 ML Epoetin Shlomo-epbx 10,000 [facility] [place] 07/04/24 21:00 07/04/24 20:28 10,000 UNIT Examination: GENERAL:Normal, MSK:Abnormal, SKIN:Abnormal, NEURO:Abnormal laboratory and microbiology Laboratory Tests 07/04/24 05:36 Test 07/04/24 05:36 Range/Units Serum Glucose 190 H 74-106 mg/dL Microbiology Date/Time Source Procedure Growth Status 06/29/24 10:30 Urine - [place] Urine Culture - Final Escherichia coli - ESBL Enterococcus faecium Complete Problem List/Assessment/Plan Problem List/Assessment/Plan End-stage renal disease on hemodialysis Urinary tract infection History of ESBL UTI Nephrolithiasis Diabetes mellitus type 2 Anemia of chronic kidney disease outpatient HD scheduling 2K bath Epogen 83519 3x a week SubQ Resume home medications Renal diet IV antibiotics via picc Insulin sliding scale Plan discussed with: Patient My Orders My Orders Orders - GORAN GARCIA MD Procedure Category Date Status Time Hemodialysis Orders ORDERS 07/04/24 Transmitted 10:35 Dialysis Nursing CÉSAR 07/04/24 In Process Message 10:35 Document Fluid Input CÉSAR 07/04/24 In Process And Outpu 10:35 Epoetin Shlomo-Epbx PHA 07/04/24 In Process (Retacrit) 21:00 Dietary Evaluation Review Recommendations by RD: Protein Supplementation Comments: 1) Add renal restriction to cardiac diet order 2) Initiate Nepro qd 2) Vitamin C @ 500 mg bid 3) Zn sulfate @ 220 mg qd 4) Monitor PO intake, skin integrity, and labs Expected Outcomes/Goals: 1) labs and appetite to improve 2) wound to improve 3) f/u in 3-5 days GORAN GARCIA MD Jul 05, 2024 09:17
--- NOTE | 2024-07-05 12:18 | DVHPN2 ---
Subjective Denies any pain Reviewed: Care Plan, H&P, Labs, Medications, Previous Orders Changes from previous H/P or p: No Changes General: Per HPI Eyes: No Pain, No Vision change, No Conjunctivae inflammation, No Eyelid inflammation, No Other, No Redness ENT: No Ear pain, No Ear discharge, No Nose pain, No Nose discharge, No Nose congestion, No Mouth pain, No Mouth swelling, No Throat pain, No Throat swelling, No Other 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: No Chest Pain, No Palpitations, No Orthopnea, No Paroxysmal Noc. Dyspnea, No Edema, No Lt Headedness, No Other Respiratory: No Cough, No Dry, No Shortness of breath, No SOB with excertion, No Wheezing, No Hemoptysis, No Pleuritic Pain, No Sputum, No Other Gastrointestinal: No Nausea, No Vomiting, No Abdominal Pain, No Diarrhea, No Constipation, No Melena, No Hematochezia, No Other Genitourinary: Dysuria; No Frequency, No Incontinence, No Hematuria, No Retention, No Other Musculoskeletal: other (Hip pain); No neck pain, No shoulder pain, No arm pain, No back pain, No hand pain, No leg pain, No foot pain Skin: No Rash, No Lesions, No Jaundice, No Bruising, No Other Objective Vitals Vital Signs Date Time Temp Pulse Resp B/P (MAP) Pulse Ox O2 Delivery O2 Flow Rate FiO2 07/05/24 10:30 74 138/63 07/05/24 08:46 97.7 15 98 97.7 07/05/24 08:15 Room Air* 0 21 Intake/Output Intake and Output 07/05/24 07:00 Intake Total 2019 ml Output Total 1030 ml Balance 989 ml Intake Oral 1969 ml IV Total 50 ml Output Urine Total 1030 ml # Voids 5 # Bowel Movements 2 General Appearance: Alert, Oriented X3, Cooperative, mild distress HEENT: Atraumatic, PERRLA Lungs: Clear to auscultation, Normal air movement 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: Normal S1, Normal S2 Abdomen: Normal bowel sounds Musculoskeletal: Normal sensory function, Normal motor function Extremities: No cyanosis Neuro: Normal gait, Normal speech Skin: Dry, Intact Psych/Mental Status: Mental status NL, Mood NL Medications Current Medications Medications Dose Ordered Sig/Mallorie Route Start Time Stop Time Status Last Admin Dose Admin Ondansetron HCl 4 mg Q4HP PRN IV 06/28/24 07:00 Acetaminophen 650 mg Q6HP PRN PO 06/28/24 07:00 07/04/24 20:27 650 MG Diagnostic Test (Pha) 1 strip ACHS 06/28/24 07:00 07/05/24 11:30 1 STRIP Insulin Human Regular ACHS SC 06/28/24 07:00 07/05/24 06:09 3 UNITS Dextrose 50 ml UD PRN IV 06/28/24 07:00 Patient Own Medication 1 tab DAILY PO 06/29/24 10:00 UNV Carvedilol 3.125 mg Q12HR PO 06/28/24 22:00 07/05/24 09:28 3.125 MG Atorvastatin Calcium 80 mg HS PO 06/28/24 22:00 07/04/24 21:30 80 MG Ertapenem 0.5 gm/ Sodium Chloride 50 ml @ 100 mls/hr DAILY IV 06/29/24 10:00 07/05/24 09:28 100 MLS/HR Morphine Sulfate 1 mg Q4HPRN PRN IV 06/30/24 15:15 06/30/24 15:55 1 MG Acetaminophen/ Hydrocodone Bitart 1 tab Q6HPRN PRN PO 06/30/24 15:15 Phenazopyridine HCl 100 mg BID PO 06/30/24 22:00 Hold Enteral Nutritional Formula 240 ml DAILY@LUNCH PO 07/01/24 12:00 07/03/24 12:07 240 ML Epoetin Shlomo-epbx 10,000 unit TUTHSA@2100 KS 07/04/24 21:00 07/04/24 20:28 10,000 UNIT Laboratory Results Laboratory Tests 07/04/24 05:36 Urinalysis Test 06/28/24 01:21 Urine Color Colorless (Yellow) Urine Clarity Turbid (Clear) H Urine pH 8.5 (5.0-9.0) Urine Specific [place] 1.012 (1.001-1.035) Urine Protein 3+ (Negative) H Urine Ketones Negative (Negative) Urine Blood 1+ /uL (Negative) H Urine Nitrite Negative (Negative) Urine Bilirubin Negative (Negative) Urine Urobilinogen Normal mg/dL (Negative) Urine Leukocyte Esterase 3+ /uL (Negative) Urine RBC 57 /hpf (0 - 3) Urine Microscopic WBC 926 /HPF (0-3) H Urine Squamous Epithelial Cells None seen /hpf (<5) Urine Bacteria None seen /hpf (None Seen) Urine Glucose 3+ mg/dL (Normal) H Microbiology Microbiology Date/Time Source Procedure Growth Status 06/29/24 10:30 Urine - [place] Urine Culture - Final Escherichia coli - ESBL Enterococcus faecium Complete Labs and/or images reviewed: Labs reviewed by me, Image(s) reviewed by me Assessment/Plan Assessment/Plan Impression: -complicated cystitis with failure of oral antibiotic therapy -end-stage renal disease with hemodialysis -deconditioning with recent hip ORIF -anemia of chronic disease -diabetes mellitus -deep tissue injury to bilateral heels Plan: Events: Pending DC when IV abx established as OP -nephrology consultation : Plans for hemodialysis today -PSA level was normal -Continue with ertapenem -regular insulin sliding scale Total time spent with patient discussing and formulating plan of care: 35 minutes. This medical document was created using an electronic medical record system with [employer] dictation system. Although this document has been carefully reviewed, there may still be some phonetic and typographical errors. These areas are purely typographical due to imperfections of the software programs, and do not reflect any compromise in the patient's medical care. 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
[2024-07-05 13:00] VITALS: BP 138/63; PULSE 74; RESP 15; TEMP 98; O2SAT 96
[2024-07-05 16:58] VITALS: BP 123/58; PULSE 79; RESP 16; TEMP 98.2; O2SAT 94
== END 2024-07-05 17:46 | disposition home health service (06) | DRG 698 ==
LOC: ER 01:04 → OVERFLOW 07:03 → CENTRAL 23:35
PROVIDERS: ADMIT Internal Medicine; ATTEND Nurse Practitioner Acute Care
PROC: 5A1D70Z Performance of Urinary Filtration, Intermittent, Less than 6 Hours Per Day (ICD-10-PCS; 2024-06-29)
PROC: 5A1D70Z Performance of Urinary Filtration, Intermittent, Less than 6 Hours Per Day (ICD-10-PCS; 2024-07-01)
PROC: 05H933Z Insertion of Infusion Device into Right Brachial Vein, Percutaneous Approach (ICD-10-PCS; principal; 2024-07-03)
PROC: B54MZZA Ultrasonography of Right Upper Extremity Veins, Guidance (ICD-10-PCS; 2024-07-03)
PROC: 0JH63XZ Insertion of Tunneled Vascular Access Device into Chest Subcutaneous Tissue and Fascia, Percutaneous Approach (ICD-10-PCS; 2024-07-03)
PROC: 02H633Z Insertion of Infusion Device into Right Atrium, Percutaneous Approach (ICD-10-PCS; 2024-07-03)
PROC: B5181ZA Fluoroscopy of Superior Vena Cava using Low Osmolar Contrast, Guidance (ICD-10-PCS; 2024-07-03)
PROC: 5A1D70Z Performance of Urinary Filtration, Intermittent, Less than 6 Hours Per Day (ICD-10-PCS; 2024-07-04)
DX: T83.098A Other mechanical complication of other urinary catheter, initial encounter (principal); N18.6 End stage renal disease; N30.00 Acute cystitis without hematuria; I12.0 Hypertensive chronic kidney disease with stage 5 chronic kidney disease or end stage renal disease; D63.1 Anemia in chronic kidney disease; E11.22 Type 2 diabetes mellitus with diabetic chronic kidney disease; N20.0 Calculus of kidney; L89.626 Pressure-induced deep tissue damage of left heel; L89.616 Pressure-induced deep tissue damage of right heel; Z86.73 Personal history of transient ischemic attack (TIA), and cerebral infarction without residual deficits; Z99.2 Dependence on renal dialysis; Z86.19 Personal history of other infectious and parasitic diseases; Y84.8 Other medical procedures as the cause of abnormal reaction of the patient, or of later complication, without mention of misadventure at the time of the procedure; Y92.89 Other specified places as the place of occurrence of the external cause
CPT/HCPCS: 36415; 36558; 71045; 74176; 76937; 77001; 80048; 80053; 81001; 82306; 82962; 83036; 83605; 83735; 83880; 83970; 84100; 84154; 84484; 85025; 85610; 85730; 87086; 87088; 87186; 87340; 90935; 93005; 96365; 96366; 96372; 99152; G0378; J1335; J1642; J1815; J2250; P9047

== ENCOUNTER 2024-09-08 18:04 | Inpatient (IN) | payer OTHER ==
[~2024-09-08] VITALS: Ht 170.2 cm; Wt 70.1 kg
[~2024-09-08 18:04] MED LIST: ACET120S38 PR; AML5T PO; ASPI-498 OR; B-COCAP23 PO; CARV25TA55 PO; DOCU-94 PO; DULA1INJ SC; FAMO20TA10 PO; GABA-1308 PO; HYDR50TA69 PO; INSU1INJ19 SC; MECL-90 PO; QUET50TA27 PO; ROSU20TA14 PO; ROSU20TA56 PO; SEVE800T8 PO; TAMS-35 PO
[2024-09-08 18:30] VITALS: PULSE 66; RESP 16; O2SAT 97
--- NOTE | 2024-09-08 18:36 | ED.PDOC ---
History of Present Illness HPI Comments 79-year-old male brought in by EMS presents with a chief complaint of syncopal episode s/p dialysis. Per EMS, patient had LOC for approximately 2 minutes. Patient reports a 5/10 headache pain at this time. Patient was able to complete full dialysis treatment with 2.5L off. Daynanet has no other stated complaints at this time. Chief Complaint: Syncope Time Seen by MD: 18:29 Reviewed Notes: Medications, Allergies Allergies: Coded Allergies: NO KNOWN ALLERGIES (Unverified , 06/28/24) Home Meds Reported Medications Tamsulosin Hcl (Flomax) 0.4 Mg Cap, 0.4 MG PO, CAP 06/29/24 Sevelamer Carbonate (Renvela) 800 Mg Tab, 800 MG PO TIDWM for 30 Days, MG 06/29/24 Rosuvastatin Calcium (Crestor) 20 Mg Tab, 1 TAB PO DAILY, #30 TAB 5 Refills 06/29/24 Meclizine Hcl (Meclizine Hcl) 25 Mg Tab, 25 MG PO BIDP PRN for ANXIETY for 30 Days, MG 06/29/24 Hydroxyzine Hcl (Hydroxyzine Hcl) 50 Mg Tab, 50 MG PO for 30 Days, MG 06/29/24 Gabapentin (Gabapentin) 100 Mg Cap, 100 MG PO TID 06/29/24 Famotidine (PEPCID TABLET) 20 Mg Tb, 1 TAB PO BID, #60 TAB 5 Refills 06/29/24 Dulaglutide (Trulicity) 0.75 Mg/0.5 Ml Inj, 0.75 MG SC, INJ 06/29/24 Docusate Sodium (Colace) 100 Mg Cap, 1 CAP PO BID, #30 CAP 06/29/24 Carvedilol (Carvedilol) 25 Mg Tab, 25 MG PO Q12HR for 30 Days, MG 06/29/24 Insulin Glargine (Basaglar Kwikpen) 100 Unit/Ml Inj, 100 UNIT SC, INJ 06/29/24 B-Complex W/ C & Folic Acid (Renal) Softgel Cap, 1 CAP PO DAILY, #30 CAP 5 Refills 06/29/24 Aspirin (ASPIRIN 81) 81 Mg Tab, 81 MG OR, TAB 06/29/24 Amlodipine Besylate (NORVASC TABLET) 5 Mg Tb, 1 TAB PO DAILY, #90 TAB 1 Refill 06/29/24 Acetaminophen (Acetaminophen) 120 Mg Sup, 650 MG MD Q6HP, MG 0 Refills 06/29/24 Carvedilol (Carvedilol) 25 Mg Tab, 1 TAB PO BID 06/28/24 Insulin Glargine (Basaglar Kwikpen) 100 Unit/Ml Inj, 12 UNIT SC 06/28/24 Rosuvastatin Calcium (Rosuvastatin Calcium) 20 Mg Tab, 1 TAB PO DAILY 06/28/24 Quetiapine Fumerate (QUETIAPINE FUMARATE) 50 Mg Tab, 1 TAB PO BIDPRN PRN 06/28/24 Information Source: Patient Mode of Arrival: EMS Severity: Moderate Timing: Minutes Duration: Since onset Prehospital treatment: None Past Medical History PAST MEDICAL HISTORY: ESRD, HTN Surgical History: Denies all surgeries Family History Family History: Reviewed,noncontributory to illness Social History Smoker: Non-Smoker Alcohol: Denies ETOH Use Drugs: Denies Drug Use Lives In: Home Constitutional: denies: chills, diaphoresis, fatigue, fever, malaise, sweats, weakness, others EENTM: denies: blurred vision, double vision, ear bleeding, ear discharge, ear drainage, ear pain, ear ringing, eye pain, eye redness, hearing loss, mouth pain, mouth swelling, nasal discharge, nose bleeding, nose congestion, nose pain, photophobia, tearing, throat pain, throat swelling, voice changes, others Respiratory: denies: cough, hemoptysis, orthopnea, SOB at rest, shortness of breath, SOB with excertion, stridor, wheezing, others 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: reports: syncope; denies: chest pain, dizzy spells, diaphoresis, Dyspnea on exertion, edema, irregular heart beat, left arm pain, lightheadedness, palpitations, PND, others Gastrointestinal: denies: abdomen distended, abdominal pain, blood streaked bowels, constipated, diarrhea, dysphagia, difficulty swallowing, hematemesis, melena, nausea, poor appetite, poor fluid intake, rectal bleeding, rectal pain, vomiting, others Genitourinary: denies: burning, dysuria, flank pain, frequency, hematuria, incontinence, penile discharge, penile sore, pain, testicle pain, testicle swelling, urgency, others Neurological: reports: headache; denies: dizziness, fainting, left sided numbness, left sided weakness, numbness, paresthesia, pre-existing deficit, rig ht sided numbness, right sided weakness, seizure, speech problems, tingling, tremors, weakness, others Musculoskeletal: denies: back pain, gout, joint pain, joint swelling, muscle pain, muscle stiffness, neck pain, others Integumetry: denies: bruises, change in color, change in hair/nails, dryness, laceration, lesions, lumps, rash, wounds, others Allergic/Immunocompromised: denies: Difficulty Healing, Frequent Infections, Hives, Itching, others Hematologic/Lymphatic: denies: anemia, blood clots, easy bleeding, easy bruising, swollen glands, others Endocrine: denies: excessive hunger, excessive sweating, excessive thirst, excessive urination, flushing, intolerance to cold, intolerance to heat, unexplained weight gain, unexplained weight loss, others Psychiatric: denies: anxiety, bipolar disorder, depression, hopeless, panic disorder, schizophrenia, sleepless, suicidal, others All Other Systems: Reviewed and Negative Physical Exam General Appearance: No Apparent Distress, Normal HEENT: Normal ENT Inspection, Pharynx Normal, TMs Normal Neck: Full Range of Motion, Non-Tender, Normal, Normal Inspection Respiratory: Chest Non-Tender, Lungs Clear, No Accessory Muscle Use, No Respiratory Distress, Normal Breath Sounds 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: No Edema, No JVD, No Murmur, No Gallop, Normal Peripheral Pulses, Regular Rate/Rhythm Breast Exam: Deferred Gastrointestinal: No Organomegaly, Non Tender, No Pulsatile Mass, Normal Bowel Sounds, Soft Genitalia: Deferred Pelvic: Deferred Rectal: Deferred Extremities: No calf tenderness, Normal capillary refill, Normal inspection, Normal range of motion, Non-tender, No pedal edema Musculoskeletal : Apperance: Normal Neurologic: Alert, sleep technologist II-XII nml as Tested, No Motor Deficits, Normal Affect, Normal Mood, No Sensory Deficits Cerebellar Function: Normal Reflexes: Normal Skin: Dry, Normal Color, Warm Lymphatic: No Adenopathy Was a procedure done? Was a procedure done?: No Differential Dx Considerations may include: Differential diagnosis includes but is not limited to: coronary ischemia, dehydration, sepsis, electrolyte abnormality, symptomatic anemia, hypovolemia and others X-Ray, Labs, Meds, VS Vital Signs Date Time Temp Pulse Resp B/P (MAP) Pulse Ox O2 Delivery O2 Flow Rate FiO2 09/08/24 19:24 80 16 98 Nasal Cannula* 2 28 09/08/24 19:24 98.9 80 12 152/65 (94) 98 98.9 09/08/24 18:30 97.6 76 16 144/66 (92) 97 97.6 09/08/24 18:30 66 16 97 Nasal Cannula* 2 28 09/08/24 18:11 97.6 72 16 171/56 (94) 93 97.6 Lab Test 09/08/24 18:40 Range/Units White Blood Count 3.8 L 4.4-10.8 10^3/uL Red Blood Count 2.90 L 4.5-5.90 10^6/uL Hemoglobin 8.9 L 13.5-17.5 g/dL Hematocrit 26.1 L 41.0-53.0 % Mean Corpuscular Volume 90.0 80.0-100.0 fL Mean Corpuscular Hemoglobin 30.8 28.0-32.0 pg Mean Corpuscular Hemoglobin Concent 34.2 32.0-36.0 g/dL Red Cell Distribution Width 15.8 H 11.8-14.3 % Platelet Count 119 L 140-450 10^3/uL Mean Platelet Volume 8.8 6.9-10.8 fL Neutrophils (%) (Auto) 71.1 37.0-80.0 % Lymphocytes (%) (Auto) 19.8 10.0-50.0 % Monocytes (%) (Auto) 5.6 0.0-12.0 % Eosinophils (%) (Auto) 3.0 0.0-7.0 % Basophils (%) (Auto) 0.5 0.0-2.0 % Neutrophils # (Auto) 2.7 1.6-8.6 10 ^3/uL Lymphocytes # (Auto) 0.8 0.4-5.4 10 ^3/uL Monocytes # (Auto) 0.2 0-1.3 10 ^3/uL Eosinophils # (Auto) 0.1 0-0.8 10 ^3/uL Basophils # (Auto) 0 0-0.2 10 ^3/uL Nucleated Red Blood Cells 0.0 % Sodium Level 139 136-145 mmol/L Potassium Level 3.9 3.5-5.1 mmol/L Chloride Level 101 98-107 mmol/L Carbon Dioxide Level 30 20-31 mmol/L Anion Gap 8 5-15 Blood Urea Nitrogen 21 9-23 mg/dL Creatinine 2.20 H 0.700-1.30 mg/dL Glomerular Filtration Rate Calc 30 >90 mL/min BUN/Creatinine Ratio 9.5 L 10.0-20.0 Serum Glucose 186 H 74-106 mg/dL Calcium Level 9.5 8.7-10.4 mg/dL Magnesium Level 1.8 1.6-2.6 mg/dL Total Bilirubin < 0.2 L 0.2-1.0 mg/dL Aspartate Amino Transferase (AST) 25 13-40 U/L Alanine Aminotransferase (ALT) 29 7-40 U/L Alkaline Phosphatase 162 H 46-116 U/L Total Protein 7.6 5.7-8.2 g/dL Albumin 4.5 3.2-4.8 g/dL Time of 1ST Reevaluation: 18:59 Reevaluation 1ST: Unchanged Time of 2ND Reevaluation: 20:07 Reevaluation 2ND: Unchanged Patient Education/Counseling: Diagnosis, Treatment, Prognosis Family Education/Counseling: Diagnosis, Treatment, No Family Present Departure 1 Departure Time of Disposition: 20:08 Impression: Primary Impression: Syncope Additional Impressions: End stage renal failure on dialysis Anemia in chronic kidney disease Disposition: ADMITTED INPATIENT Admit to: [facility] Condition: Guarded Discharged With: Self, Relative Comments Syncope Post-Dialysis Chief Complaint: Syncope at dialysis center History of Present Illness: 79-year-old male with history of chronic renal failure on regular hemodialysis (Wednesday, Wednesday, Wednesday schedule) presented via EMS after experiencing a syncopal episode at the dialysis center. The event occurred immediately after completing his dialysis session while staff were removing the dialysis equipment. Patient reports he briefly slumped to the ground but denies any injuries or pain from the fall. He reports improvement in symptoms since the event. Family members are concerned about the episode and have requested overnight observation. Review of Systems: Constitutional: Denies fever, chills, or ongoing weakness 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: Denies chest pain or palpitations Neurological: Denies persistent dizziness, headache Musculoskeletal: Denies pain or injury from fall Other systems: Deferred or negative Medications: Not documented in hand box folder Allergies: Not documented in hand box folder Past Medical History: 1. End-stage renal disease on hemodialysis 2. Anemia of chronic kidney disease 3. Hypertension Lab Results: Hemoglobin/Hematocrit: 8.9/26 BUN: 21 Creatinine: 2.2 (post-dialysis) Potassium: 3.9 Blood glucose: 86 Imaging and Other Relevant Results: No imaging studies documented Medical Decision Making: Summary Statement: 79-year-old male with ESRD on hemodialysis presents with pos t-dialysis syncope, likely due to volume shifts or underlying anemia. Problem List: 1. Post-dialysis syncope 2. End-stage renal disease 3. Anemia of chronic kidney disease Differential Diagnosis: 1. Intradialytic hypotension 2. Cardiac arrhythmia 3. Vasovagal syncope 4. Orthostatic hypotension 5. Symptomatic anemia ED Course: Patient stabilized after syncope. Labs reviewed showing stable post- dialysis values. Family requesting observation. Plan for overnight monitoring. Assessment and Plan: 1. Post-dialysis Syncope: - Admit for overnight observation - Monitor vital signs and cardiac telemetry - Serial neurological checks 2. End-stage Renal Disease: - Continue scheduled dialysis - Monitor electrolytes 3. Anemia of Chronic Kidney Disease: - Continue current anemia management - Monitor hemoglobin/hematocrit Billing Information: ICD-10: R55 - Syncope and collapse ICD-10: N18.6 - End stage renal disease ICD-10: D63.1 - Anemia in chronic kidney disease Critical Care Note Critical Care Time?: No Stability Stability form required: No Heart Score Heart Score: Heart Score Response (Comments) Value History N/A 0 EKG N/A 0 Age N/A 0 Risk Factors N/A 0 Troponin N/A 0 Total 0 I personally scribed for ELPIDIO BASSETT MD ([email or web address]) on 09/08/24 at 18:36. Radha ctronically submitted by Otis Dickson ([email or web address]). ELPIDIO BASSETT MD Sep 08, 2024 18:36
[2024-09-08 19:11] LABS: Basophils # (auto) 0 10 ^3/uL (0-0.2); Basophils % (auto) 0.5 % (0.0-2.0); Eosinophils # (auto) 0.1 10 ^3/uL (0-0.8); Hematocrit 26.1 % (41.0-53.0); Hemoglobin 8.9 g/dL (13.5-17.5); Lymphocytes # (auto) 0.8 10 ^3/uL (0.4-5.4); Lymphocytes % (auto) 19.8 % (10.0-50.0); Mean Corpuscular Hemoglobin 30.8 pg (28.0-32.0); Mean Corpuscular Hgb Conc. 34.2 g/dL (32.0-36.0); Monocytes # (auto) 0.2 10 ^3/uL (0-1.3); Monocytes % (auto) 5.6 % (0.0-12.0); Neutrophils # (auto) 2.7 10 ^3/uL (1.6-8.6); Neutrophils % (auto) 71.1 % (37.0-80.0); Platelet Count (auto) 119 10^3/uL (140-450); Red Cell Distribution Width 15.8 % (11.8-14.3); White Blood Cell 3.8 10^3/uL (4.4-10.8)
[2024-09-08 19:21] LABS: Alanine Aminotransferase 29 U/L (7-40); Albumin 4.5 g/dL (3.2-4.8); Anion Gap 8 (5-15); Aspartate Aminotransferase 25 U/L (13-40); BUN/Creatinine Ratio 9.5 (10.0-20.0); Blood Urea Nitrogen 21 mg/dL (9-23); Calcium 9.5 mg/dL (8.7-10.4); Carbon Dioxide 30 mmol/L (20-31); Chloride 101 mmol/L (98-107); Magnesium 1.8 mg/dL (1.6-2.6); Potassium 3.9 mmol/L (3.5-5.1); Sodium 139 mmol/L (136-145); Total Protein 7.6 g/dL (5.7-8.2)
[2024-09-08 19:22] LABS: Alkaline Phosphatase 162 U/L (46-116); Bilirubin, Total < 0.2 mg/dL (0.2-1.0); Glucose 186 mg/dL (74-106)
[2024-09-08 19:24] VITALS: PULSE 80; RESP 16; O2SAT 98
--- NOTE | 2024-09-08 21:27 | DVH ---
CHEST RADIOGRAPH Indication: sob Technique: Single frontal view of the chest was obtained Comparison: XY CHEST PORTABLE on DOS: 07/03/24 Findings/ IMPRESSION: Right IJ catheter with tip projects terminating near the cavoatrial junction. Coarse bilateral inters titial opacities most likely representing a chronic interstitial process and less likely due to inter stitial pneumonia. No pneumothorax or pleural effusions.
--- NOTE | 2024-09-08 21:30 | DVH ---
EXAM: CT HEAD WITHOUT CONTRAST INDICATION: syncope TECHNIQUE: CT of the head without intravenous contrast. Radiation Dose Information: CT Dose: CTDI volume is 53.89 mGy. Dose-length product is 954.25 mGy*cm The dose indicators for CT are the volume Computed Tomography (CT) Dose Index (CTDIvol) and the Dose Length Product (DLP), and are measured in units of mGy and mGy-cm, respectively. These indicators are not patient dose, but values generated from the CT scanner acquisition factors. The report includes radiation exposure data for exposures received during this examination. COMPARISON: None FINDINGS: There is no evidence of acute intracranial hemorrhage, extra-axial collection, mass effect, midline s hift, herniation or hydrocephalus. Deep white matter ischemia right frontal parietal lobe The ventricles, sulci and cisterns are age appropriate. The jiménez-white differentiation is intact. Patchy periventricular and subcortical white matter hypoattenuation is nonspecific but may be related to small vessel ischemic disease. The visualized paranasal sinuses and mastoid air cells are clear. The surrounding soft tissues and osseous structures are unremarkable. IMPRESSION: 1. No acute intracranial hemorrhage 2. Deep white matter ischemia in the right frontal parietal lobe above the right lateral ventricle. 3. No CT findings of territorial ischemia.
[2024-09-08] MEDS: ACETAMINOPHEN 325 MG TAB PO ONE (22:18)
[2024-09-08] MEDS ORDERED: ONDANSETRON HCL 4 MG/2 ML VIAL IV PRN (22:30)
[2024-09-08] MEDS ORDERED: DEXTROSE (50%) 50ML SYRG IV PRN (22:30)
[2024-09-08 22:44] VITALS: BP 139/72; PULSE 78; PULSE 81; RESP 16; RESP 18; TEMP 98; O2SAT 96; O2SAT 98
[2024-09-08 23:05] VITALS: BP 139/72; PULSE 81; RESP 18; TEMP 98; O2SAT 98
[2024-09-09] VITALS (7 sets, daily range): BP systolic 99–142; BP diastolic 39–66; PULSE 66–78; RESP 15–18; TEMP 97.2–98.6; O2SAT 94–99
--- NOTE | 2024-09-09 04:44 | DVHHP2 ---
History of Present Illness Reason for Visit: Syncope History of Present Illness 79-year-old male presents for evaluation of syncopal episode. Patient was completing his dialysis session when he suffered a syncopal episode. Patient lost consciousness for approximately 2 minutes. Patient denies dizziness, chest pain, unilateral weakness or blurred vision. He does report having a mild headache. Denies any other acute complaints at the moment. Past Medical History Diabetes mellitus, hypertension and end-stage renal disease Past Surgical History Dialysis access Family History Noncontributory Smoke: No ALCOHOL: none Drugs: None Lives: with Family Review of Systems Review of Systems Review of systems are currently negative otherwise addressed in HPI. Allergies: Coded Allergies: NO KNOWN ALLERGIES (Unverified , 06/28/24) Medications Current Medications Medications Dose Ordered Sig/Mallorie Route Start Time Stop Time Status Last Admin Dose Admin Amlodipine Besylate 5 mg DAILY PO 09/09/24 10:00 Aspirin 81 mg DAILY PO 09/09/24 10:00 Carvedilol 25 mg Q12HR PO 09/09/24 10:00 Gabapentin 100 mg TID PO 09/09/24 06:00 Atorvastatin Calcium 20 mg HS PO 09/09/24 22:00 Sevelamer HCl 800 mg TIDWM PO 09/09/24 08:00 Diagnostic Test (Pha) 1 strip ACHS 09/09/24 07:00 Insulin Human Regular ACHS SC 09/09/24 07:00 Dextrose 50 ml UD PRN IV 09/08/24 22:30 Ondansetron HCl 4 mg Q4HP PRN IV 09/08/24 22:30 Acetaminophen 650 mg Q6HP PRN PO 09/08/24 22:30 Exam Vital Signs Vital Signs Date Time Temp Pulse Resp B/P (MAP) Pulse Ox O2 Delivery O2 Flow Rate FiO2 09/09/24 01:00 97.9 78 18 138/57 (84) 95 97.9 09/08/24 22:44 Room Air* 0 21 Exam Gen: 79-year-old male in no apparent distress. Skin: Warm, dry, normal color and texture, no rash. HEENT: Normocephalic atraumatic, mucous membranes moist and pink. Neck: Cervical and supraclavicular nodes normal without enlargement, trachea is midline, thyroid gland is normal without masses. Pulmonary: Clear to auscultation and percussion bilaterally. Cardiac: Regular rate and rhythm. No murmur Abdomen: Soft, nontender, nondistended, bowel sounds present all 4 quadrants, no guarding, no rigidity, no organomegaly. Extremities: No cyanosis, clubbing, no edema Neuro: Cranial nerves II through XII grossly intact, normal affect and speech, no focal motor deficits. Labs/Xrays ORDERING PHYSICIAN: AUBREE GHOSH PROCEDURE(s): CXR1 - CHEST XRAY 1 VIEW REASON: sob ORDER NUMBER(s): [id number], ACCESSION NUMBER(s): [id number] CHEST RADIOGRAPH Indication: sob Technique: Single frontal view of the chest was obtained Comparison: XY CHEST PORTABLE on DOS: 07/03/24 Findings/ IMPRESSION: Right IJ catheter with tip projects terminating near the cavoatrial junction. Coarse bilateral interstitial opacities most likely representing a chronic interstitial process and less likely due to interstitial pneumonia. No pneumothorax or pleural effusions. RING PHYSICIAN: AUBREE GHOSH PROCEDURE(s): HWOCT - HEAD WITHOUT CONTRAST REASON: syncope ORDER NUMBER(s): [id number], ACCESSION NUMBER(s): [id number] EXAM: CT HEAD WITHOUT CONTRAST INDICATION: syncope TECHNIQUE: CT of the head without intravenous contrast. Radiation Dose Information: CT Dose: CTDI volume is 53.89 mGy. Dose-length product is 954.25 mGy*cm The dose indicators for CT are the volume Computed Tomography (CT) Dose Index (CTDIvol) and the Dose Length Product (DLP), and are measured in units of mGy and mGy-cm, respectively. These indicators are not patient dose, but values generated from the CT scanner acquisition factors. The report includes radiation exposure data for exposures received during this examination. COMPARISON: None FINDINGS: There is no evidence of acute intracranial hemorrhage, extra-axial collection, mass effect, midline shift, herniation or hydrocephalus. Deep white matter ischemia right frontal parietal lobe The ventricles, sulci and cisterns are age appropriate. The jiménez-white differentiation is intact. Patchy periventricular and subcortical white matter hypoattenuation is nonspecific but may be related to small vessel ischemic disease. The visualized paranasal sinuses and mastoid air cells are clear. The surrounding soft tissues and osseous structures are unremarkable. IMPRESSION: 1. No acute intracranial hemorrhage 2. Deep white matter ischemia in the right frontal parietal lobe above the right lateral ventricle. 3. No CT findings of territorial ischemia. ATED BY: HELLEN SENIOR Jr. DO Labs Test 09/08/24 18:40 Range/Units White Blood Count 3.8 L 4.4-10.8 10^3/uL Red Blood Count 2.90 L 4.5-5.90 10^6/uL Hemoglobin 8.9 L 13.5-17.5 g/dL Hematocrit 26.1 L 41.0-53.0 % Mean Corpuscular Volume 90.0 80.0-100.0 fL Mean Corpuscular Hemoglobin 30.8 28.0-32.0 pg Mean Corpuscular Hemoglobin Concent 34.2 32.0-36.0 g/dL Red Cell Distribution Width 15.8 H 11.8-14.3 % Platelet Count 119 L 140-450 10^3/uL Mean Platelet Volume 8.8 6.9-10.8 fL Neutrophils (%) (Auto) 71.1 37.0-80.0 % Lymphocytes (%) (Auto) 19.8 10.0-50.0 % Monocytes (%) (Auto) 5.6 0.0-12.0 % Eosinophils (%) (Auto) 3.0 0.0-7.0 % Basophils (%) (Auto) 0.5 0.0-2.0 % Neutrophils # (Auto) 2.7 1.6-8.6 10 ^3/uL Lymphocytes # (Auto) 0.8 0.4-5.4 10 ^3/uL Monocytes # (Auto) 0.2 0-1.3 10 ^3/uL Eosinophils # (Auto) 0.1 0-0.8 10 ^3/uL Basophils # (Auto) 0 0-0.2 10 ^3/uL Nucleated Red Blood Cells 0.0 % Sodium Level 139 136-145 mmol/L Potassium Level 3.9 3.5-5.1 mmol/L Chloride Level 101 98-107 mmol/L Carbon Dioxide Level 30 20-31 mmol/L Anion Gap 8 5-15 Blood Urea Nitrogen 21 9-23 mg/dL Creatinine 2.20 H 0.700-1.30 mg/dL Glomerular Filtration Rate Calc 30 >90 mL/min BUN/Creatinine Ratio 9.5 L 10.0-20.0 Serum Glucose 186 H 74-106 mg/dL Calcium Level 9.5 8.7-10.4 mg/dL Magnesium Level 1.8 1.6-2.6 mg/dL Total Bilirubin < 0.2 L 0.2-1.0 mg/dL Aspartate Amino Transferase (AST) 25 13-40 U/L Alanine Aminotransferase (ALT) 29 7-40 U/L Alkaline Phosphatase 162 H 46-116 U/L Total Protein 7.6 5.7-8.2 g/dL Albumin 4.5 3.2-4.8 g/dL Thyroid Stimulating Hormone (TSH) 2.58 0.55-4.78 uIU/mL Assessment/Plan Assessment/Plan Assessment Syncope End-stage renal disease, dialysis dependent Anemia of chronic disease Diabetes mellitus Hypertension Plan admit the patient to [facility] surge to the hospitalist Echocardiogram pending Carotid ultrasound pending Resume home medications Continue treatment per orders. Plan discussed with: Patient My Orders Orders - AUBREE GHOSH Procedure Category Date Status Time Chest Xray 1 View XY 09/08/24 Resulted 20:[address] 09/08/24 Resulted 20:54 Admit ADMIT 09/08/24 Transmitted 20:54 Amlodipine Tablet PHA 09/09/24 In Process (Norvasc Tablet) 10:00 Aspirin Tablet PHA 09/09/24 In Process 10:00 Carvedilol Tablet PHA 09/09/24 In Process (Coreg Tablet) 10:00 Gabapentin Capsule PHA 09/09/24 In Process (Neurontin Capsule) 06:00 Atorvastatin (Lipitor) PHA 09/09/24 In Process 22:00 Sevelamer (Renagel) PHA 09/09/24 In Process 08:00 Echo 2d Mode Cardiac US 09/08/24 Logged DOP 22:24 Basic Metabolic Panel LAB 09/09/24 Logged 04:00 Glucose Blood PHA 09/09/24 In Process (Accu-Chek Comfort 07:00 Insulin R (Human) PHA 09/09/24 In Process (Insulin R) 07:00 Dextrose 50% Syringe PHA 09/08/24 In Process 22:30 Renal DIET 09/09/24 Transmitted Standard(2gna,3gk,Lopho) Breakfast Ondansetron Hcl PHA 09/08/24 In Process (Zofran) 22:30 Complete Blood Count LAB 09/09/24 Logged 04:00 Condition: Fair CÉSAR 09/08/24 In Process 22:24 Acetaminophen Tablet PHA 09/08/24 In Process (Tylenol Tablet) 22:30 Bedrest With Bathroom CÉSAR 09/08/24 In Process Privileg 22:24 Carotid Duplx W Color US 09/09/24 Logged DOP 10:00 * Unemployment Benefits Claims Taker CONS 09/08/24 Transmitted Consult 23:29 Mrsa Screen SHELDON 09/08/24 In Process 23:29 Date of Service: Sep 08, 2024 Billing Provider: AUBREE GHOSH Common Visit Codes: [id number] INP/OBS CARE (HIGH) AUBREE GHOSH Sep 09, 2024 04:44
[2024-09-09] MEDS: GABAPENTIN 100 MG CAP PO SCH (05:09)
[2024-09-09] MEDS: ACCU-CHEK COMFORT CURVE STRIP VI SCH (05:09)
[2024-09-09] MEDS: InsuLIN REG 1unit/0.01ml Soln (100units/ml) SC SCH (05:15)
[2024-09-09] MEDS: ACETAMINOPHEN 325 MG TAB PO PRN (05:16)
[2024-09-09 06:15] LABS: Basophils # (auto) 0 10 ^3/uL (0-0.2); Eosinophils # (auto) 0.3 10 ^3/uL (0-0.8); Eosinophils % (auto) 5.2 % (0.0-7.0); Hemoglobin 8.1 g/dL (13.5-17.5); Lymphocytes # (auto) 1.4 10 ^3/uL (0.4-5.4); Mean Corpuscular Volume 90.1 fL (80.0-100.0); Neutrophils # (auto) 3.4 10 ^3/uL (1.6-8.6)
[2024-09-09 06:19] LABS: Chloride 104 mmol/L (98-107); Potassium 4.8 mmol/L (3.5-5.1); Sodium 141 mmol/L (136-145)
[2024-09-09 06:20] LABS: Anion Gap 7 (5-15); Basophils % (auto) 0.6 % (0.0-2.0); Calcium 9.3 mg/dL (8.7-10.4); Carbon Dioxide 30 mmol/L (20-31); Hematocrit 23.7 % (41.0-53.0); Lymphocytes % (auto) 25.4 % (10.0-50.0); Mean Corpuscular Hemoglobin 30.6 pg (28.0-32.0); Monocytes # (auto) 0.5 10 ^3/uL (0-1.3); Monocytes % (auto) 8.5 % (0.0-12.0); Neutrophils % (auto) 60.3 % (37.0-80.0); Nucleated Red Blood Cells % 0.1 %; Platelet Count (auto) 117 10^3/uL (140-450); Red Blood Cells 2.63 10^6/uL (4.5-5.90); Red Cell Distribution Width 15.6 % (11.8-14.3); White Blood Cell 5.6 10^3/uL (4.4-10.8)
[2024-09-09 06:26] LABS: BUN/Creatinine Ratio 9.7 (10.0-20.0)
[2024-09-09 06:27] LABS: Blood Urea Nitrogen 31 mg/dL (9-23); Glucose 184 mg/dL (74-106)
[2024-09-09] MEDS: ASPirin 81 mg TAB PO SCH (09:28)
[2024-09-09] MEDS: SEVELAMER 800 MG TAB PO SCH (09:29)
[2024-09-09] MEDS: amLODIPine BESYLATE 5 MG TAB PO SCH (09:29)
[2024-09-09] MEDS: CARVEDILOL 12.5 MG TAB PO SCH (09:30)
[2024-09-09] MEDS: PANTOPRAZOLE 40 MG TAB PO ONE (13:55)
--- NOTE | 2024-09-09 14:12 | DVH ---
EXAM: MRI BRAIN HEAD WO CONTRAST CLINICAL HISTORY: cva COMPARISON: CT head 09/08/2024 TECHNIQUE: Multiplanar, multisequence magnetic resonance imaging of the brain was performed after the administra tion of intravenous contrast. FINDINGS: [id number] diffuse brain atrophy. Mild chronic small-vessel ischemic changes. Right high convex ity frontal lobe hypodensity without effacement of adjacent sulci which may represent an area of embosser apprentice shannon infarct. No hemorrhages, masses, mass effect, midline shift, herniation or cytotoxic edema following a large v ascular territory. No intra-axial or extra-axial fluid collections. No evidence of hydrocephalus. The basal cisterns are patent. Vascular flow voids are maintained. The pituitary gland, sella and parasellar regions are unremarkable. The cerebellar tonsils are in no rmal position. The cerebellum is unremarkable. The orbits and globes are unremarkable. Minimal Pansinus mucoperiosteal thickening. Opacification of right posterior ethmoid air cell. No worrisome calvarial lesions. IMPRESSION: No evidence of acute intracranial abnormalities. Suggested chronic infarct over the right high conve xity frontal lobe. Right posterior mastoid disease.
--- NOTE | 2024-09-09 14:18 | DVH ---
Carotid Duplex Date: 09/09/2024 10:21 AM Clinical History: syncope Comparison: None Technique: Duplex Doppler evaluation of the extracranial carotid and vertebral arteries including color Doppler and spectral/pulsed waveform analysis was performed. Findings: RIGHT SIDE: The peak systolic velocities are 112.9 cm/s in the distal CCA and 112.6 cm/s in the proximal ICA.The ICA/CCA ratio is less than 2 . The external carotid artery is patent with peak systolic velocity of 109.3 cm/s proximally. There is appropriate antegrade flow in the right vertebral artery, 56.8 cm/s LEFT SIDE: The peak systolic velocities are 95.2 cm/s in the distal CCA and 117.4 cm/s in the proximal ICA.. T he ICA/CCA ratio is less than 2 . The external carotid artery is patent with peak systolic velocity of 127.9 cm/s proximally. There is appropriate antegrade flow in the left vertebral artery, 90.4 cm/s IMPRESSION: 1. No hemodynamically significant stenosis noted in the right carotid system. 2. No hemodynamically significant stenosis noted in the left carotid system. 3. Reference: Radiology 2003; 229:340-346
[2024-09-09 14:55] LABS: Urine Bacteria FEW /hpf (None Seen); Urine Blood 1+ /uL (Negative); Urine Clarity Ex.Turbid (Clear); Urine Protein, UAD 2+ (Negative); Urine Specific Gravity 1.012 (1.001-1.035); Urine Squamous Epithelial Cell FEW /hpf (<5); Urine Urobilinogen Normal (Negative); Urine WBC 1561 /HPF (0-3); Urine WBC Clumps PRESENT /hpf (None Seen); Urine pH 7.5 (5.0-9.0)
[2024-09-09 14:56] LABS: Urine Color Yellow (Yellow)
--- NOTE | 2024-09-09 15:23 | DVHPN2 ---
Subjective Feels better. Patient was started on ciprofloxacin as outpatient two days ago for UTI. Reviewed: Care Plan, H&P, Labs, Medications, Previous Orders, Radiology Changes from previous H/P or p: No Changes Objective Vitals Vital Signs Date Time Temp Pulse Resp B/P (MAP) Pulse Ox O2 Delivery O2 Flow Rate FiO2 09/09/24 13:00 74 16 142/62 (88) 97 09/09/24 13:00 97.2 97.2 09/09/24 08:00 Nasal Cannula* 2 28 Intake/Output Intake and Output 09/09/24 07:00 Intake Total 240 ml Output Total 200 ml Balance 40 ml Intake Oral 240 ml Output Urine Total 200 ml General Appearance: Alert, Oriented X3, Cooperative, No acute distress HEENT: Atraumatic Lungs: Clear to auscultation 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: Regular rate Neuro: Other (Symmetric upper and lower extremities and cranial nerve 2-12) Medications Current Medications Medications Dose Ordered Sig/Mallorie Route Start Time Stop Time Status Last Admin Dose Admin Amlodipine Besylate 5 mg DAILY PO 09/09/24 10:00 09/09/24 09:29 5 MG Aspirin 81 mg DAILY PO 09/09/24 10:00 09/09/24 09:28 81 MG Carvedilol 25 mg Q12HR PO 09/09/24 10:00 09/09/24 09:30 25 MG Gabapentin 100 mg TID PO 09/09/24 06:00 09/09/24 13:55 100 MG Atorvastatin Calcium 20 mg HS PO 09/09/24 22:00 Sevelamer HCl 800 mg TIDWM PO 09/09/24 08:00 09/09/24 11:27 800 MG Diagnostic Test (Pha) 1 strip ACHS 09/09/24 07:00 09/09/24 11:27 1 STRIP Insulin Human Regular ACHS SC 09/09/24 07:00 09/09/24 11:49 4 UNITS Dextrose 50 ml UD PRN IV 09/08/24 22:30 Ondansetron HCl 4 mg Q4HP PRN IV 09/08/24 22:30 Acetaminophen 650 mg Q6HP PRN PO 09/08/24 22:30 09/09/24 05:16 650 MG Pantoprazole Sodium 40 mg DAILY@0600 PO 09/10/24 06:00 Ciprofloxacin 250 mg Q12HR PO 09/09/24 22:00 Laboratory Results Laboratory Tests 09/09/24 04:43 Chemistry Test 09/08/24 18:40 09/09/24 04:43 Albumin 4.5 g/dL (3.2-4.8) Calcium Level 9.5 mg/dL (8.7-10.4) 9.3 mg/dL (8.7-10.4) Magnesium Level 1.8 mg/dL (1.6-2.6) Total Protein 7.6 g/dL (5.7-8.2) LFT Test 09/08/24 18:40 Alanine Aminotransferase (ALT) 29 U/L (7-40) Alkaline Phosphatase 162 U/L (46-116) H Aspartate Amino Transferase (AST) 25 U/L (13-40) Total Bilirubin < 0.2 mg/dL (0.2-1.0) L HgA1c, TSH Test 09/08/24 18:40 Thyroid Stimulating Hormone (TSH) 2.58 uIU/mL (0.55-4.78) Urinalysis Test 09/09/24 11:13 Urine Color Yellow (Yellow) Urine Clarity Ex.turbid (Clear) Urine pH 7.5 (5.0-9.0) Urine Specific [place] 1.012 (1.001-1.035) Urine Protein 2+ (Negative) H Urine Ketones Negative (Negative) Urine Blood 1+ /uL (Negative) H Urine Nitrite Negative (Negative) Urine Bilirubin Negative (Negative) Urine Urobilinogen Normal mg/dL (Negative) Urine Leukocyte Esterase 3+ /uL (Negative) Urine RBC 33 /hpf (0 - 3) Urine WBC Clumps Present /hpf (None Seen) Urine Microscopic WBC 1561 /HPF (0-3) H Urine Squamous Epithelial Cells Few /hpf (<5) Urine Bacteria Few /hpf (None Seen) H Urine Glucose 3+ mg/dL (Normal) H Microbiology Microbiology Date/Time Source Procedure Growth Status 09/08/24 23:10 Nose MRSA Screen - Final Complete Assessment/Plan Assessment/Plan Questionable syncope Possible CVA with right frontal/parietal lobe deep white matter ischemia Anemia of chronic disease End-stage renal disease on hemodialysis UTI Plan: Resume Cipro. MRI of the head. H&H. Further plan per orders Plan discussed with: Patient, Daughter (Over the phone with the patient calling her from bed on his cell phone) My Orders Orders - LE PATEL MD Procedure Category Date Status Time * Neurology Consult CONS 09/09/24 Transmitted 11:23 Brain Head Wo Contrast MRI 09/09/24 Resulted 11:23 Complete Blood Count LAB 09/10/24 Verified 06:00 Comprehensive LAB 09/10/24 Verified Metabolic Panel 06:00 Pantoprazole Tablet PHA 09/10/24 In Process (Protonix Tablet) 06:00 Hemoglobin & LAB 09/09/24 Logged Hematocrit 16:00 Ciprofloxacin Tablet PHA 09/09/24 In Process (Cipro Tablet) 22:00 Urine Bacterial SHELDON 09/09/24 In Process Culture 14:15 Ciprofloxacin Tablet PHA 09/09/24 Verified (Cipro Tablet) 22:00 Date of Service: Sep 09, 2024 Billing Provider: LE PATEL MD Common Visit Codes: [id number] INP/OBS CARE(HIGH) LE PATEL MD Sep 09, 2024 15:23
[2024-09-09] MEDS: CIPROFLOXACIN HYDROCHLORIDE 250 MG TAB PO ONE (15:44)
--- NOTE | 2024-09-09 15:48 | BSKYNEURO ---
[place] [facility] Note # Demographics Consult Type: General Neurology Patient Location: Inpatient First Name: Tavares Last Name: Tin Date of : 1945 Age: 79 Gender: Male Facility: [facility] Time of Initial Page (): 09/09/2024 12:22 Time of Return Call ( Time): 09/09/2024 12:23 # HPI History: Left leg feels weak since April Here for syncope after dialysis yesterday. Duration: - improving # Scores Level of Consciousness 1a: [0] = Alert; keenly responsive LOC Questions 1b: [0] = Answers both questions correctly LOC Commands 1c: [0] = Performs both tasks correctly Best Gaze 2: [0] = Normal Visual 3: [0] = No visual loss Facial Palsy 4: [0] = Normal symmetrical movements Motor Arm Left 5a: [0] = No drift Motor Arm Right 5b: [0] = No drift Motor Leg Left 6a: [0] = No drift Motor Leg Right 6b: [0] = No drift Limb Ataxia 7: [0] = Absent Sensory 8: [0] = Normal Best Language 9: [0] = No aphasia Dysarthria 10: [0] = Normal Extinction and Inattention 11: [0] = No abnormality NIHSS Total: 0 # Data Head CT: - no bleed - per radiologist read CTA Neck: carotid duplex neg MRI: - no acute ischemia - per radiologist read # Assessment Impression: Syncope workup although could be fluid shifts from dialysis contributing. No stroke like sx reported. MRI reassuring. # Plan Other: - If patient has any neurological deterioration please call me back immediately - would not pursue stroke work-up if MRI is negative # Logistics Attestation of consult completion: The patient is located at: [facility]. Facility staff participated in the visit. I performed this tel emedicine visit from my offsite office utilizing interactive 2 way audio and visual telecommunication technology. Total time spent in telemedicine encounter: I spent 21 minutes reviewing clinical data and/or imaging, obtaining history, examining the patient, communicating with the onsite care team, and in preparation of this report. # Demographics First Name: Tavares Last Name: Tin Facility: [facility] Electronically signed at 09/09/2024 15:48 () by Aayush Dewitt MD Yes MUSTAPHA DEWITT MD Sep 09, 2024 15:48
--- NOTE | 2024-09-09 16:17 | DVHSR ---
APPROVED REPORT EXAM: Two-dimensional and M-mode echocardiogram with Doppler and color Doppler. Blood Pressure: 120/39 mmHg INDICATION Syncope RISK FACTORS Height: 5'7", Weight: 136 DIMENSIONS LVDd (3.8-5.7cm)LA (2D)4.6 (1.9-4.0cm)Aortic Root (2.0-3.7cm) EF (%) 60.0 (55-70%)Rt. Atrium4.0 (1.9-4.0cm)Asc. Aorta cm IVSd (0.7-1.1cm)RV (D)4.5 (1.8-2.4cm) Mitral Valve MitralMitral Stenosis E wave0.91m/sMV Mean GR.mmHg A wave1.17m/sMV Peak GR.mmHg E/A ratio0.82D MVAcm2 DECEL [id number] 1/2 Timems Aortic Valve Aortic ValveAortic Stenosis V11.02m/Valdo Mean GR.12mmHg V22.32m/Valdo Peak GR.22mmHg LVOT Diameter1.9 (1.8-2.4cm)Doppler AVA1.25cm2 Other Information Technically limited study due to body habitus. Conclusion Sinus rhythm. Off axis views. Biatrial enlargement. Aortic sclerosis/stenosis. Immobility of the right coronary cusp. The tricuspid and pulmonic normal . Left ventricular function is preserved at 60% with normal RV function. Peak gradient across the aortic valve of22 mmHg with a mean gradient of 12. A valve area of 1.25 cm2 . This is still within the normal range. Small pericardial effusion not hemodynamically significant. No masses or vegetations discernible.
[2024-09-09 16:21] LABS: Hematocrit 25.1 % (41.0-53.0); Hemoglobin 8.4 g/dL (13.5-17.5)
[2024-09-09] MEDS ORDERED: CIPROFLOXACIN HYDROCHLORIDE 250 MG TAB PO SCH (22:00)
[2024-09-09] MEDS: CIPROFLOXACIN HYDROCHLORIDE 250 MG TAB PO SCH (22:03)
[2024-09-09] MEDS: ATORVASTATIN 20 MG TAB PO SCH (22:04)
[2024-09-10 01:00] VITALS: BP 159/68; PULSE 71; RESP 18; TEMP 97.4; O2SAT 98
[2024-09-10 05:21] LABS: Basophils # (auto) 0 10 ^3/uL (0-0.2); Basophils % (auto) 0.7 % (0.0-2.0); Eosinophils # (auto) 0.4 10 ^3/uL (0-0.8); Hemoglobin 7.9 g/dL (13.5-17.5); Monocytes # (auto) 0.5 10 ^3/uL (0-1.3); Red Blood Cells 2.63 10^6/uL (4.5-5.90); White Blood Cell 5.3 10^3/uL (4.4-10.8)
[2024-09-10 05:23] LABS: Hematocrit 23.7 % (41.0-53.0); Lymphocytes % (auto) 38.4 % (10.0-50.0); Mean Corpuscular Hemoglobin 30.2 pg (28.0-32.0); Mean Corpuscular Hgb Conc. 33.5 g/dL (32.0-36.0); Mean Corpuscular Volume 90.3 fL (80.0-100.0); Monocytes % (auto) 8.7 % (0.0-12.0); Neutrophils # (auto) 2.4 10 ^3/uL (1.6-8.6); Neutrophils % (auto) 44.2 % (37.0-80.0); Platelet Count (auto) 117 10^3/uL (140-450); Red Cell Distribution Width 15.2 % (11.8-14.3)
[2024-09-10 05:35] LABS: Alanine Aminotransferase 23 U/L (7-40); Albumin 3.9 g/dL (3.2-4.8); Anion Gap 10 (5-15); Aspartate Aminotransferase 18 U/L (13-40); Calcium 9.4 mg/dL (8.7-10.4); Carbon Dioxide 27 mmol/L (20-31); Chloride 102 mmol/L (98-107); Potassium 4.9 mmol/L (3.5-5.1); Sodium 139 mmol/L (136-145); Total Protein 6.6 g/dL (5.7-8.2)
[2024-09-10 05:36] LABS: Alkaline Phosphatase 125 U/L (46-116); Bilirubin, Total 0.2 mg/dL (0.2-1.0); Blood Urea Nitrogen 52 mg/dL (9-23); Glucose 153 mg/dL (74-106)
[2024-09-10] MEDS: PANTOPRAZOLE 40 MG TAB PO SCH (05:42)
[2024-09-10 08:30] VITALS: BP 108/66; PULSE 69; RESP 16; TEMP 97.4; O2SAT 99
[2024-09-10 12:30] VITALS: BP 135/66; PULSE 75; RESP 16; TEMP 97.8; O2SAT 95
--- NOTE | 2024-09-10 14:27 | DVHDS2 ---
Discharge Summary Date of Admission Sep 08, 2024 at 20:54 Date of Discharge: Sep 10, 2024 Admitting Diagnosis Possible fainting/syncope on dialysis Labs/Diagnostic Data: Laboratory Results Test 09/10/24 10:54 09/10/24 04:51 09/09/24 11:13 09/08/24 18:40 POC Glucose 224 mg/dl (70-106) White Blood Count 5.3 10^3/uL (4.4-10.8) Red Blood Count 2.63 10^6/uL (4.5-5.90) Hemoglobin 7.9 g/dL (13.5-17.5) Hematocrit 23.7 % (41.0-53.0) Mean Corpuscular Volume 90.3 fL (80.0-100.0) Mean Corpuscular Hemoglobin 30.2 pg (28.0-32.0) Mean Corpuscular Hemoglobin Concent 33.5 g/dL (32.0-36.0) Red Cell Distribution Width 15.2 % (11.8-14.3) Platelet Count 117 10^3/uL (140-450) Mean Platelet Volume 8.8 fL (6.9-10.8) Neutrophils (%) (Auto) 44.2 % (37.0-80.0) Lymphocytes (%) (Auto) 38.4 % (10.0-50.0) Monocytes (%) (Auto) 8.7 % (0.0-12.0) Eosinophils (%) (Auto) 8.0 % (0.0-7.0) Basophils (%) (Auto) 0.7 % (0.0-2.0) Neutrophils # (Auto) 2.4 10 ^3/uL (1.6-8.6) Lymphocytes # (Auto) 2.0 10 ^3/uL (0.4-5.4) Monocytes # (Auto) 0.5 10 ^3/uL (0-1.3) Eosinophils # (Auto) 0.4 10 ^3/uL (0-0.8) Basophils # (Auto) 0 10 ^3/uL (0-0.2) Nucleated Red Blood Cells 0.0 % Sodium Level 139 mmol/L (136-145) Potassium Level 4.9 mmol/L (3.5-5.1) Chloride Level 102 mmol/L (98-107) Carbon Dioxide Level 27 mmol/L (20-31) Anion Gap 10 (5-15) Blood Urea Nitrogen 52 mg/dL (9-23) Creatinine 4.00 mg/dL (0.700-1.30) Glomerular Filtration Rate Calc 15 mL/min (>90) BUN/Creatinine Ratio 13.0 (10.0-20.0) Serum Glucose 153 mg/dL (74-106) Calcium Level 9.4 mg/dL (8.7-10.4) Total Bilirubin 0.2 mg/dL (0.2-1.0) Aspartate Amino Transferase (AST) 18 U/L (13-40) Alanine Aminotransferase (ALT) 23 U/L (7-40) Alkaline Phosphatase 125 U/L (46-116) Total Protein 6.6 g/dL (5.7-8.2) Albumin 3.9 g/dL (3.2-4.8) Urine Color Yellow (Yellow) Urine Clarity Ex.turbid (Clear) Urine pH 7.5 (5.0-9.0) Urine Specific [place] 1.012 (1.001-1.035) Urine Protein 2+ (Negative) Urine Ketones Negative (Negative) Urine Blood 1+ /uL (Negative) Urine Nitrite Negative (Negative) Urine Bilirubin Negative (Negative) Urine Urobilinogen Normal mg/dL (Negative) Urine Leukocyte Esterase 3+ /uL (Negative) Urine RBC 33 /hpf (0 - 3) Urine WBC Clumps Present /hpf (None Seen) Urine Microscopic WBC 1561 /HPF (0-3) Urine Squamous Epithelial Cells Few /hpf (<5) Urine Bacteria Few /hpf (None Seen) Urine Glucose 3+ mg/dL (Normal) Magnesium Level 1.8 mg/dL (1.6-2.6) Thyroid Stimulating Hormone (TSH) 2.58 uIU/mL (0.55-4.78) Other Laboratory Tests 09/10/24 04:51 Brief Hx & Hospital Course: 79-year-old gentleman admitted to the hospital from the emergency room because of failure episode while finishing his dialysis. We will up showed some UTI. Hemoglobin chronically low in the eight range. Head CT showed questionable deep white matter ischemia. MRI showed no acute stroke. MRA showed old CVA. Neurology consultation obtained. CVA ruled out. Recommended no more workup for CVA. Urine culture grew Streptococcus viridans. Patient is being discharged home on amoxicillin. Follow up with dialysis and with PCP Consults/Reason for consult Neurology. No interventions Condition at Discharge: Good Final Diagnosis/Problems List Syncope likely secondary from volume shift in dialysis UTI with Streptococcus viridans anemia of chronic disease History of old CVA End-stage renal disease on hemodialysis Discharge Disposition: Home Discharge Instruct/Medications Diet: Renal Activity: No Restrictions, As Tolerated Follow Up/Referral: Dialysis tomorrow PCP within one week Medications: Amoxicillin 500 mg t.i.d. for five days Resume previous home medications Discharge Statement: "Patient was advised to return to the ER or call 911 if any headaches, dizziness, shortness of breath, chest pain, abdominal pain, bleeding, fevers, or worsening of medical condition. Patient was counseled about treatment plan, medications, possible side effects, patientverbalized understanding. All questions were answered to the best of my ability. This discharge took greater then 30 minutes in planning, reviewing documentation, counseling the patient, and discussing with other team members." ASSESSMENT ASSESSMENT Assessment Date of Service: Sep 10, 2024 Billing Provider: LE PATEL MD Common Visit Codes: [id number] DISCH DAY <30MIN LE PATEL MD Sep 10, 2024 14:27
[2024-09-10] MEDS ORDERED: AMOX500C2 PO (14:28)
[2024-09-10 15:58] VITALS: BP 135/66; PULSE 75; RESP 16; TEMP 97.8; O2SAT 95
[2024-09-10 16:30] VITALS: BP 148/67; PULSE 74; RESP 16; TEMP 97.9; O2SAT 96
== END 2024-09-10 17:56 | disposition home or self-care (01) | DRG 312 ==
LOC: ER 18:04 → EDBD 18:04 → EDUNIT# 18:04 → OVERFLOW 20:54 → EAST 22:44
PROVIDERS: ADMIT Nurse Practitioner; ATTEND Nurse Practitioner
DX: R55 Syncope and collapse (principal); N18.6 End stage renal disease; I12.0 Hypertensive chronic kidney disease with stage 5 chronic kidney disease or end stage renal disease; N39.0 Urinary tract infection, site not specified; D63.1 Anemia in chronic kidney disease; B95.4 Other streptococcus as the cause of diseases classified elsewhere; E11.22 Type 2 diabetes mellitus with diabetic chronic kidney disease; Z99.2 Dependence on renal dialysis; Z79.899 Other long term (current) drug therapy; Z79.4 Long term (current) use of insulin; Z79.82 Long term (current) use of aspirin; Z79.1 Long term (current) use of non-steroidal anti-inflammatories (NSAID); Z86.73 Personal history of transient ischemic attack (TIA), and cerebral infarction without residual deficits
CPT/HCPCS: 36415; 70450; 70551; 71045; 80048; 80053; 81001; 82962; 83735; 84443; 85014; 85018; 85025; 87081; 87086; 93306; 93886; G0378; J1815